=== PATIENT | female | born 1990 | race Caucasian/White ===

== ENCOUNTER 2020-01-28 14:07 | Outpatient (CLI) | payer MEDICARE, MEDICAID ==
[2020-01-28 17:55] LABS: BASOPHILS # (AUTO) 0.1 10^3/uL (0.0-0.1); BASOPHILS % (AUTO) 0.5 %; EOSINOPHILS % (AUTO) 0.3 %; HGB - HEMOGLOBIN 13.5 g/dL (12.0-16.0); LYMPHOCYTES % (AUTO) 10.1 %; MEAN CORPUSCULAR HEMOGLOBIN 33.9 pg (27.0-31.0); MEAN CORPUSCULAR HGB CONC 33.2 g/dL (32.0-36.0); MEAN CORPUSCULAR VOLUME 102.3 fL (81.0-99.0); MEAN PLATELET VOLUME 9.8 fL (7.9-10.8); MONOCYTES # (AUTO) 0.4 10^3/uL (0.0-1.0); MONOCYTES % (AUTO) 3.7 %; NEUTROPHILS # (AUTO) 8.6 10^3/uL (1.5-6.6); NEUTROPHILS % (AUTO) 84.6 %; PLT - PLATELET COUNT 281 10^3/uL (130-450); RED BLOOD COUNT 3.98 10^6/uL (4.20-5.40); RED CELL DISTRIBUTION WIDTH 13.2 % (12.0-15.0); WHITE BLOOD COUNT 10.1 x10^3/uL (4.8-10.8)
[2020-01-28 18:08] LABS: ALBUMIN 4.2 g/dL (3.2-5.5); ALBUMIN/GLOBULIN RATIO 1.4 (1.0-2.2); BILIRUBIN,TOTAL 0.6 mg/dL (0.2-1.0); CALCIUM 8.3 mg/dL (8.5-10.3); CREATININE 0.6 mg/dL (0.4-1.0); TOTAL PROTEIN 7.1 g/dL (6.7-8.2)
== END 2020-01-28 14:08 | disposition home or self-care (01) ==
LOC: LAB.S 14:07
PROVIDERS: ATTEND Nurse Practitioner Family
DX: L23.9 Allergic contact dermatitis, unspecified cause (principal); R21 Rash and other nonspecific skin eruption; F41.9 Anxiety disorder, unspecified; F32.9 Major depressive disorder, single episode, unspecified
CPT/HCPCS: 36415; 80053; 84443; 85025; 85651

== ENCOUNTER 2020-11-01 07:00 | Outpatient (CLI) | payer MEDICARE, MEDICAID ==
--- NOTE | 2020-11-01 13:33 | XRAY Report ---
PROCEDURE: Abdomen 1 View X-Ray INDICATIONS: ABDOMINAL PAIN TECHNIQUE: 1 view of the abdomen were acquired. COMPARISON: None. FINDINGS: Surgical changes and devices: None. Bowel: No pneumoperitoneum. The bowel gas pattern is normal. [id number] stool Soft tissues: No masses; visualized solid organ contours appear normal in size. No suspicious abdom inal calcifications. Bones: No suspicious bony abnormalities. IMPRESSION: No specific evidence of bowel obstruction although continued surveillance with abdominal radiographs could be performed if the patient's symptoms do not improve. Reviewed by: Taco Yanez MD on 11/01/2020 1:32 PM PST Approved by: Taco Yanez MD on 11/01/2020 1:32 PM PST Station ID: [id number]
== END 2020-11-01 23:59 | disposition home or self-care (01) ==
LOC: DI.N 07:00
PROVIDERS: ATTEND Physician Assistant Medical
DX: R10.9 Unspecified abdominal pain (principal)

== ENCOUNTER 2020-11-01 08:00 | Outpatient (CLI) | payer MEDICARE, MEDICAID ==
[2020-11-01 17:54] LABS: BASOPHILS # (AUTO) 0.1 10^3/uL (0.0-0.1); BASOPHILS % (AUTO) 0.7 %; EOSINOPHILS # (AUTO) 0.1 10^3/uL (0.0-0.7); EOSINOPHILS % (AUTO) 0.7 %; HGB - HEMOGLOBIN 12.7 g/dL (12.0-16.0); LYMPHOCYTES # (AUTO) 1.9 10^3/uL (1.5-3.5); LYMPHOCYTES % (AUTO) 19.7 %; MEAN CORPUSCULAR HEMOGLOBIN 32.9 pg (27.0-31.0); MEAN CORPUSCULAR HGB CONC 31.6 g/dL (32.0-36.0); MEAN CORPUSCULAR VOLUME 104.1 fL (81.0-99.0); MEAN PLATELET VOLUME 9.8 fL (7.9-10.8); MONOCYTES # (AUTO) 0.8 10^3/uL (0.0-1.0); MONOCYTES % (AUTO) 8.2 %; NEUTROPHILS # (AUTO) 6.7 10^3/uL (1.5-6.6); NEUTROPHILS % (AUTO) 70.3 %; PLT - PLATELET COUNT 307 10^3/uL (130-450); RED BLOOD COUNT 3.86 10^6/uL (4.20-5.40); WHITE BLOOD COUNT 9.5 x10^3/uL (4.8-10.8)
[2020-11-01 18:06] LABS: ALBUMIN 4.3 g/dL (3.2-5.5); ALBUMIN/GLOBULIN RATIO 1.2 (1.0-2.2); BILIRUBIN,TOTAL 0.7 mg/dL (0.2-1.0); CALCIUM 9.4 mg/dL (8.5-10.3); CREATININE 0.5 mg/dL (0.4-1.0); TOTAL PROTEIN 7.9 g/dL (6.7-8.2)
== END 2020-11-01 23:59 | disposition home or self-care (01) ==
LOC: LAB.N 08:00
PROVIDERS: ATTEND Physician Assistant Medical
DX: R10.9 Unspecified abdominal pain (principal)
CPT/HCPCS: 36415; 80053; 82962; 83690; 85025

== ENCOUNTER 2020-11-05 19:44 | Emergency (ER) | payer MEDICARE, MEDICAID ==
[2020-11-05 20:12] LABS: BILIRUBIN,URINE NEGATIVE (NEGATIVE); GLUCOSE, URINE (UA) NEGATIVE (NEGATIVE); KETONES,URINE (UA) 15 mg/dL (NEGATIVE); LEUKOCYTE ESTERASE, URINE NEGATIVE (NEGATIVE); NITRITE,URINE NEGATIVE (NEGATIVE); OCCULT BLOOD,URINE LARGE (NEGATIVE); PH,URINE 5.5 PH (5.0-7.5); PROTEIN,URINE NEGATIVE (NEGATIVE); UROBILINOGEN,URINE 0.2 (NORMAL) E.U./dL (NORMAL)
[2020-11-05 20:13] LABS: BASOPHILS # (AUTO) 0.1 10^3/uL (0.0-0.1); BASOPHILS % (AUTO) 0.6 %; EOSINOPHILS # (AUTO) 0.1 10^3/uL (0.0-0.7); EOSINOPHILS % (AUTO) 0.6 %; HGB - HEMOGLOBIN 12.8 g/dL (12.0-16.0); LYMPHOCYTES # (AUTO) 1.8 10^3/uL (1.5-3.5); LYMPHOCYTES % (AUTO) 14.4 %; MEAN CORPUSCULAR HEMOGLOBIN 33.7 pg (27.0-31.0); MEAN CORPUSCULAR HGB CONC 32.8 g/dL (32.0-36.0); MEAN CORPUSCULAR VOLUME 102.6 fL (81.0-99.0); MEAN PLATELET VOLUME 8.9 fL (7.9-10.8); MONOCYTES % (AUTO) 7.6 %; NEUTROPHILS # (AUTO) 9.7 10^3/uL (1.5-6.6); NEUTROPHILS % (AUTO) 76.5 %; PLT - PLATELET COUNT 399 10^3/uL (130-450); RED CELL DISTRIBUTION WIDTH 11.9 % (12.0-15.0); WHITE BLOOD COUNT 12.7 x10^3/uL (4.8-10.8)
[2020-11-05 20:16] LABS: CLARITY,URINE HAZY (CLEAR); HCG UR QUAL NEGATIVE
[2020-11-05 20:32] LABS: ALBUMIN 4.4 g/dL (3.2-5.5); ALBUMIN/GLOBULIN RATIO 1.1 (1.0-2.2); ALKALINE PHOSPHATASE 68 IU/L (42-121); ALT ALANINE AMINOTRANSFERASE 20 IU/L (10-60); AST ASPARTATE AMINOTRANSFERASE 21 IU/L (10-42); BILIRUBIN,TOTAL 0.8 mg/dL (0.2-1.0); BUN - BLOOD UREA NITROGEN < 5 mg/dL (6-20); CALCIUM 9.6 mg/dL (8.5-10.3); CARBON DIOXIDE - CO2 24 mmol/L (21-32); CHLORIDE 99 mmol/L (101-111); CREATININE 0.6 mg/dL (0.4-1.0); GLUCOSE 112 mg/dL (70-100); LIPASE 31 U/L (22-51); SODIUM 135 mmol/L (135-145); TOTAL PROTEIN 8.5 g/dL (6.7-8.2)
[2020-11-05 20:34] LABS: BACTERIA,URINE Moderate /HPF (None Seen); SQUAMOUS EPITHELIAL CELL,UR FEW Squamous (<= Few)
[2020-11-05] MEDS ORDERED: MINERAL OIL ENEMA 133 ML BOTTLE RC STA (20:47)
[2020-11-05] MEDS ORDERED: IOVERSOL 320 100 ML VIAL IVP ONE ×2 (21:46→22:13)
[2020-11-05] MEDS ORDERED: SODIUM CHLORIDE 0.9% 1,000 ML IV STA (22:32)
--- NOTE | 2020-11-05 22:50 | ED Physician Documentation ---
History of Present Illness - Stated complaint Stated Complaint: FEMALE - Chief complaint Chief Complaint: Abd Pain - History obtained from History obtained from: Patient - History of Present Illness Pain level max: 5 Pain level now: 4 - Additonal information Additional information: Patient states that she has had lower abdominal pain for the past 2 weeks. Nothing seems to make it better or worse. She states she has had troubles with constipation, swelling in her lower abdomen and difficulty urinating. No vaginal bleeding or discharge. No vomiting. No fevers. Has never had similar symptoms in the past. Denies any possibility of . 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 : None HEENT: None Psych: Depression, Anxiety Musculoskeletal: None Derm: None - Past Surgical History Past Surgical History: No - Present Medications Home Medications: Ambulatory Orders Medication Instructions Recorded Confirmed Escitalopram [Lexapro] 15 mg pe DAILY PM 11/05/20 11/05/20 Mirtazapine [Remeron] 15 mg PO DAILY PM 11/05/20 11/05/20 lamoTRIgine [Lamictal Odt] 50 mg PO DAILY 11/05/20 11/05/20 traZODone [Desyrel] 100 mg PO DAILY 11/05/20 11/05/20 - Allergies Allergies/Adverse Reactions: Allergies Allergy/AdvReac Type Severity Reaction Status Date / Time No Known Drug Allergies Allergy Verified 07/13/20 08:08 - Social History Does the pt smoke?: No Smoking Status: Never smoker Does the pt drink ETOH?: No Does the pt have substance abuse?: Yes Substance Use and Type: Marijuana - Immunizations Immunizations are current?: Yes PD ED PE NORMAL - Vitals Vital signs reviewed: Yes - General General: Alert and oriented X 3, No acute distress - HEENT HEENT: PERRL, Moist mucous membranes - Neck Neck: Supple, no meningeal sign - Cardiac Cardiac: RRR, Strong equal pulses - Respiratory Respiratory: No respiratory distress, Clear bilaterally - Abdomen Abdomen: Normal bowel sounds, Other (Distended abdomen, firm up to the level of the umbilicus. Tender palpation lower abdomen) - Derm Derm: Warm and dry - Extremities Extremities: No edema - Neuro Neuro: Alert and oriented X 3 - Psych Psych: Normal mood, Normal affect Results - Vitals Vitals: Vital Signs - 24 hr 11/05/20 11/05/20 19:52 22:04 Temperature 36.9 C 36.4 C L Heart Rate 105 H 90 Respiratory 18 16 Rate Blood Pressure 124/92 H 114/76 O2 Saturation 98 100 Oxygen O2 Source Room air - Labs Labs: Laboratory Tests 11/05/20 11/05/20 11/05/20 20:02 20:07 20:07 WBC 12.7 H RBC 3.80 L Hgb 12.8 Hct 39.0 MCV 102.6 H MCH 33.7 H MCHC 32.8 RDW 11.9 L Plt Count 399 MPV 8.9 Neut # (Auto) 9.7 H Lymph # (Auto) 1.8 [place] # (Auto) 1.0 Eos # (Auto) 0.1 Baso # (Auto) 0.1 Absolute Nucleated RBC 0.00 Nucleated RBC % 0.0 Sodium 135 Potassium 3.4 L Chloride 99 L Carbon Dioxide 24 Anion Gap 12.0 BUN < 5 L Creatinine 0.6 Estimated GFR (MDRD) 117 Glucose 112 H Calcium 9.6 Total Bilirubin 0.8 AST 21 ALT 20 Alkaline Phosphatase 68 Total Protein 8.5 H Albumin 4.4 Globulin 4.1 Albumin/Globulin Ratio 1.1 Lipase 31 Urine Color YELLOW Urine Clarity HAZY Urine pH 5.5 Ur Specific [place] <=1.005 Urine Protein NEGATIVE Urine Glucose (UA) NEGATIVE Urine Ketones 15 H Urine Occult Blood LARGE H Urine Nitrite NEGATIVE Urine Bilirubin NEGATIVE Urine Urobilinogen 0.2 (NORMAL) Ur Leukocyte Esterase NEGATIVE Urine RBC 6-10 H Urine WBC 0-3 Ur Squamous Epith Cells FEW Squamous Urine Bacteria Moderate H Ur Microscopic Review INDICATED Urine Culture Comments INDICATED Urine HCG, Qual NEGATIVE - Rads (name of study) CT abdomen pelvis Radiology: Prelim report reviewed, EMP read contemporaneously, See rad report Pelvic ultrasound Radiology: Prelim report reviewed, EMP read contemporaneously, See rad report PD MEDICAL DECISION MAKING - ED course Complexity details: reviewed results, re-evaluated patient, considered differential, d/w patient, d/w sales support consultant ED course: Patient is a 30-year-old female who presents to the emergency department with lower abdominal pain, constipation and difficulty urinating. Bedside ultrasound reveals an enlarged bladder. Conner catheter was placed and a 1.5 L of urine was drained. Patient felt better after this. CT scan was obtained and on my read of the CT scan appears to have a 10 x 10 x 15 cm large ovarian cyst. Gynecology was consulted, Dr. Prabhakar. She requested pelvic ultrasound. She will come and evaluate the patient. Patient was signed out to Dr. Barnett for final read of the abdomen pelvis, pelvic ultrasound results and gynecology consult results. Please see his note for further care. This document was made in part using voice recognition software. While efforts are made to proofread this document, sound alike and grammatical errors may occur. Departure - Departure Clinical Impression: Urinary retention Ovarian cyst Qualifiers: Laterality: unspecified laterality Qualified Code(s): N83.209 - Unspecified ovarian cyst, unspecified side Condition: Stable
[2020-11-05 23:48] LABS: C. PNEUMONIAE- RESP PCR PANEL NOT DETECTED
--- NOTE | 2020-11-06 00:30 | ED Physician Documentation ---
ED Addendum - Addendum Addendum: 11/06/20 00:27 Patient had her ultrasound and the preliminary worksheet is a likely ovarian cyst with some debris. Measures 15 cm. There is flow in both ovaries. No free fluid. Final report still pending. Dr. Prabhakar came to the ER to evaluate the imaging as well as the patient. Consideration on her perspective is ovarian serous versus endometrioma given that the patient does have a somewhat elevated CA-125. The patient does not have a bowel obstruction. She did have stool output impairment as well as bladder outlet obstruction. The bladder is decompressed with a Conner catheter. This would have the patient not in an emergent position but more urgent. Given the time of night, Dr. Prabhakar was considering placing the patient in observation or same day surgery but deferring surgery until the morning rather than calling in the OR crew off-hours for nonemergent case. However would need to be attended to on timely and urgent basis. Final diagnoses pelvic cyst, large #2 bladder outlet obstruction #3 rectal outlet obstruction #4 pelvic pain Disposition the patient will be placed in the hospital for same-day surgery to be performed tomorrow.
--- NOTE | 2020-11-06 00:57 | HISTORY & PHYSICAL EXAMINATION ---
HPI - Admitted From Admitted from: Other (ER consult with direct-admission surgery planned later today) - History Obtained From History obtained from: Patient Exam limitations: No limitations - History of Present Illness HPI Comment/Other: Asked by ER to consult on this patient with a 14cm ovarian cyst. About 2w ago started to have a gradual onset of a bloated and gassy feeling. No increased flatulence. Able to BM bid as per her usual. Bloating became worse with time and was associated with persistent urges to urinate and to defecate. Tried beano, ex lax, gas ex, and metamucil. Went to walk-in clinic 4d ago, received an xray, and was told taht she was constipated. On 11/05 the pain became severe. Mostly unable to urinate despite a strong urge to. Would void just a little bit and had a sensation of incomplete emptying. The voids that she were able to do were associated with severe stabbing pains. Catheterized for >1L of urine in the ER and immediately felt better. Currently in almost no discomfort. Was also given an enema in the ER, had scant volume of feces that came out, still feels an urge to defecate. Is passing flatus. No nausea or vomiting. Last spontaneous BM was at 13:00 yesterday and was normal in appearance and volume. ROS: no unexplained weight loss, fevers, night sweats, cough, hematuria, or melena. Occasional bright red bleeding in the stool that started after she felt herself tear. BMs are formed. PMH: --14cm ovarian cyst --Depression with prior suicide attempt, currently feeling well-managed with medications --Bulemia and anorexia x 10 years, better in the past 6 months. Was 104# at her worst in 2014 and is 137# now. Purging currently a few times per month. At her worst she was purging multiple times per day about 50% of days. --Alcoholism mostly sober for the past 2 months. Had a few days of relapse last week due to the pain and once in early September. Was drinking about 20 shots per day. Would drink until passing out, wake up, and repeat throughout the day. --Has been on disability since 2014 for her eating disorder and addiction. 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 No sexual partners since 2016. Not using contracep tion. LMP 11/05/20. Menses q4-6 weeks with a duration of 4 days. No mid-cycle bleeding. Has mild cramping on day #1 of menses. Allergies: NKDA Medications: --Lamotrigine 50mg po qhs --Escitalopram 20mg po qhs --Mirtazapine 15mg po qhs --Trazadone 50mg po qhs Family history: no anesthesia problems, breast cancer, ovarian cancer, or colon cancer Social history: is on disability. Lives alone with her cat. Vegan diet. Quit tobacco in 2016. Alcoholism sober since last week. Heavy THC use daily for the past 3 years but has quit now for 5 weeks. 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 : positive: None HEENT: positive: None Psych: positive: Depression, Anxiety, Eating disorder, Other (Alcoholism) Musculoskeletal: positive: None Derm: positive: None MRSA Hx?: No Social & Family Hx - Living Situation Living Arrangement: At home - Social History Does the pt smoke?: No Smoking Status: Former smoker (quit 2015) Does the pt drink ETOH?: No ETOH Use: Other (Quit 20 drinks per day in 10/2020) Does the pt have substance abuse?: Yes Substance Use and Type: Marijuana (quit 09/2020) Additional Social History: Alcoholism Meds/Allgy - Home Medications Home Medications: Ambulatory Orders Medication Instructions Recorded Confirmed Escitalopram [Lexapro] 15 mg pe DAILY PM 11/05/20 11/05/20 Mirtazapine [Remeron] 15 mg PO DAILY PM 11/05/20 11/05/20 lamoTRIgine [Lamictal Odt] 50 mg PO DAILY 11/05/20 11/05/20 traZODone [Desyrel] 100 mg PO DAILY 11/05/20 11/05/20 - Allergies Allergies/Adverse Reactions: Allergies Allergy/AdvReac Type Severity Reaction Status Date / Time No Known Drug Allergies Allergy Verified 07/13/20 08:08 Exam - Vital Signs Reviewed Vital Signs: Yes Vital Signs: Vital Signs x48h Temp Pulse Resp BP Pulse Ox 11/06/20 00:00 97.5 F L 92 16 106/75 100 11/05/20 22:56 100 18 115/89 H 100 11/05/20 22:04 97.5 F L 90 16 114/76 100 11/05/20 19:52 98.5 F 105 H 18 124/92 H 98 - Physical Exam General Appearance: positive: No acute distress Eyes Bilateral: positive: EOMI Neck: positive: Trachea midline Respiratory: positive: No respiratory distress, Breath sounds nml Cardiovascular: positive: Regular rate & rhythm, No murmur Abdomen: positive: Tenderness (mild right lower quadrant). negative: Guarding, Rebound Skin: positive: Color nml. negative: Cyanosis Extremities: positive: Non-tender, Nml appearance Neurologic/Psychiatric: positive: Oriented x3, CN's nml (2-12), Mood/affect nml Results - Lab Results Fish Bones: 11/05/20 20:07 11/05/20 20:07 Other Lab Results: Lab Results x24hrs 11/05/20 11/05/20 11/05/20 Range/Units 22:47 20:07 20:07 WBC (4.8-10.8) x10^3/uL RBC (4.20-5.40) 10^6/uL Hgb (12.0-16.0) g/dL Hct (37.0-47.0) % MCV (81.0-99.0) fL MCH (27.0-31.0) pg MCHC (32.0-36.0) g/dL RDW (12.0-15.0) % Plt Count (130-450) 10^3/uL MPV (7.9-10.8) fL Neut # (Auto) (1.5-6.6) 10^3/uL Lymph # (Auto) (1.5-3.5) 10^3/uL [place] # (Auto) (0.0-1.0) 10^3/uL Eos # (Auto) (0.0-0.7) 10^3/uL Baso # (Auto) (0.0-0.1) 10^3/uL Absolute Nucleated RBC x10^3/uL Nucleated RBC % /100WBC Sodium 135 (135-145) mmol/L Potassium 3.4 L (3.5-5.0) mmol/L Chloride 99 L (101-111) mmol/L Carbon Dioxide 24 (21-32) mmol/L Anion Gap 12.0 (6-13) BUN < 5 L (6-20) mg/dL Creatinine 0.6 (0.4-1.0) mg/dL Estimated GFR (MDRD) 117 (>89) Glucose 112 H (70-100) mg/dL Calcium 9.6 (8.5-10.3) mg/dL Total Bilirubin 0.8 (0.2-1.0) mg/dL AST 21 (10-42) IU/L ALT 20 (10-60) IU/L Alkaline Phosphatase 68 (42-121) IU/L Total Protein 8.5 H (6.7-8.2) g/dL Albumin 4.4 (3.2-5.5) g/dL Globulin 4.1 (2.1-4.2) g/dL Albumin/Globulin Ratio 1.1 (1.0-2.2) Lipase 31 (22-51) U/L [place] 125 Antigen 431.6 H (0.0-35.0) U/mL Urine Color Urine Clarity (CLEAR) Urine pH (5.0-7.5) PH Ur Specific [place] (1.002-1.030) Urine Protein (NEGATIVE) mg/dL Urine Glucose (UA) (NEGATIVE) mg/dL Urine Ketones (NEGATIVE) mg/dL Urine Occult Blood (NEGATIVE) Urine Nitrite (NEGATIVE) Urine Bilirubin (NEGATIVE) Urine Urobilinogen (NORMAL) E.U./dL Ur Leukocyte Esterase (NEGATIVE) Urine RBC (0-5) /HPF Urine WBC (0-5) /HPF Ur Squamous Epith Cells (<= Few) Urine Bacteria (None Seen) /HPF Ur Microscopic Review Urine Culture Comments Urine HCG, Qual Nasal Adenovirus (PCR) NOT DETECTED Nasal B. parapertussis DNA (PCR) NOT DETECTED Nasal Coronavir 229E PCR NOT DETECTED Nasal Coronavir HKU1 PCR NOT DETECTED Nasal Coronavir NL63 PCR NOT DETECTED Nasal Coronavir OC43 PCR NOT DETECTED Nasal Enterovir/Rhinovir PCR NOT DETECTED Nasal Influenza B PCR NOT DETECTED Nasal Influenza A PCR NOT DETECTED Nasal Parainfluen 1 PCR NOT DETECTED Nasal Parainfluen 2 PCR NOT DETECTED Nasal Parainfluen 3 PCR NOT DETECTED Nasal Parainfluen 4 PCR NOT DETECTED Nasal RSV (PCR) NOT DETECTED Nasal B.pertussis DNA PCR NOT DETECTED Nasal C.pneumoniae (PCR) NOT DETECTED [place] Human Metapneumo PCR NOT DETECTED Nasal M.pneumoniae (PCR) NOT DETECTED Nasal SARS-CoV-2 (PCR) NOT DETECTED 11/05/20 11/05/20 Range/Units 20:07 20:02 WBC 12.7 H (4.8-10.8) x10^3/uL RBC 3.80 L (4.20-5.40) 10^6/uL Hgb 12.8 (12.0-16.0) g/dL Hct 39.0 (37.0-47.0) % MCV 102.6 H (81.0-99.0) fL MCH 33.7 H (27.0-31.0) pg MCHC 32.8 (32.0-36.0) g/dL RDW 11.9 L (12.0-15.0) % Plt Count 399 (130-450) 10^3/uL MPV 8.9 (7.9-10.8) fL Neut # (Auto) 9.7 H (1.5-6.6) 10^3/uL Lymph # (Auto) 1.8 (1.5-3.5) 10^3/uL [place] # (Auto) 1.0 (0.0-1.0) 10^3/uL Eos # (Auto) 0.1 (0.0-0.7) 10^3/uL Baso # (Auto) 0.1 (0.0-0.1) 10^3/uL Absolute Nucleated RBC 0.00 x10^3/uL Nucleated RBC % 0.0 /100WBC Sodium (135-145) mmol/L Potassium (3.5-5.0) mmol/L Chloride (101-111) mmol/L Carbon Dioxide (21-32) mmol/L Anion Gap (6-13) BUN (6-20) mg/dL Creatinine (0.4-1.0) mg/dL Estimated GFR (MDRD) (>89) Glucose (70-100) mg/dL Calcium (8.5-10.3) mg/dL Total Bilirubin (0.2-1.0) mg/dL AST (10-42) IU/L ALT (10-60) IU/L Alkaline Phosphatase (42-121) IU/L Total Protein (6.7-8.2) g/dL Albumin (3.2-5.5) g/dL Globulin (2.1-4.2) g/dL Albumin/Globulin Ratio (1.0-2.2) Lipase (22-51) U/L [place] 125 Antigen (0.0-35.0) U/mL Urine Color YELLOW Urine Clarity HAZY (CLEAR) Urine pH 5.5 (5.0-7.5) PH Ur Specific [place] <=1.005 (1.002-1.030) Urine Protein NEGATIVE (NEGATIVE) mg/dL Urine Glucose (UA) NEGATIVE (NEGATIVE) mg/dL Urine Ketones 15 H (NEGATIVE) mg/dL Urine Occult Blood LARGE H (NEGATIVE) Urine Nitrite NEGATIVE (NEGATIVE) Urine Bilirubin NEGATIVE (NEGATIVE) Urine Urobilinogen 0.2 (NORMAL) (NORMAL) E.U./dL Ur Leukocyte Esterase NEGATIVE (NEGATIVE) Urine RBC 6-10 H (0-5) /HPF Urine WBC 0-3 (0-5) /HPF Ur Squamous Epith Cells FEW Squamous (<= Few) Urine Bacteria Moderate H (None Seen) /HPF Ur Microscopic Review INDICATED Urine Culture Comments INDICATED Urine HCG, Qual NEGATIVE Nasal Adenovirus (PCR) Nasal B. parapertussis DNA (PCR) Nasal Coronavir 229E PCR Nasal Coronavir HKU1 PCR Nasal Coronavir NL63 PCR Nasal Coronavir OC43 PCR Nasal Enterovir/Rhinovir PCR Nasal Influenza B PCR Nasal Influenza A PCR Nasal Parainfluen 1 PCR Nasal Parainfluen 2 PCR Nasal Parainfluen 3 PCR Nasal Parainfluen 4 PCR Nasal RSV (PCR) Nasal B.pertussis DNA PCR Nasal C.pneumoniae (PCR) [place] Human Metapneumo PCR Nasal M.pneumoniae (PCR) Nasal SARS-CoV-2 (PCR) - Diagnostic Imaging Results Diagnostic Imaging Results: positive: Prelim report reviewed, Read contemporaneously Diagnostic Imaging Results Comments: CT abdomen pelvis 11/05/20: 14.2cm pelvic cystic mass posterior to the uterus c/w ovarian cyst. No lymphadenopathy, ascites, or omental caking. Ultrasound pelvis 11/05/20: [id number] likely right ovarian cyst posterior to the uterus. Mostly with a homogeneous ground-glass appearance with a small complex area medially. Normal flow. Normal uterus and endometrium. Left ovary [id number] with a simple 2cm cyst. No free fluid. Impression/Plan - Problem List Problem List: 30yo with a ground-glass 14cm ovarian cyst causing bladder outlet obstruction and an ileus. Not . --Acute pain has resolved with cortez placement and >1L of retained urine drained. Continue cortez. --Ileus by CT scan, patient is passing flatus, is without nausea or vomiting, and had a normal BM at 13:00. Continue NPO for planned surgery. --Ovarian cyst is complex with a ground-glass appearance and a small degree of lateral heterogeneous appearance. No septation or solid components seen. The appearance is most consistent with an endometrioma. No ascites, omental caking, lymphadenopathy, constitutional symptoms, or family history of breast or ovarian cancer. CA125 is elevated at 431--which is non-specific but is not normal. Elevated CA125 could be due to her recovering alcoholism, possible endometriosis, etc. The patient will require surgical management. Will likely be appropriate for surgery here but I would recommend getting an oncology opinion tomorrow morning. With the size she may need an oophorectomy and not just a cystectomy. With the size she may require a laparotomy rather than laparoscopy. Dr. Hernandez will be assuming her care at 07:00 today. Patient was counseled that he will approach surgery in the manner he deems to be best and that currently I can't group counselor her about the exact type of surgery. She will go home to care for her cat, will remain NPO, cortez will be in situ. She will be called later today with the surgery location and arrival time. COVID screening was negative today. --Alcoholism in recent recovery. Has not drank in the past week so pt is at low risk for DTs. Consider avoiding tylenol products. Platelets and LFTs are norm al.
[2020-11-06 01:22] VITALS: BP 111/91
--- NOTE | 2020-11-06 08:24 | CT Report ---
PROCEDURE: Abdomen/Pelvis W INDICATIONS: abd pain, distention CONTRAST: IV CONTRAST: Optiray 320 ml: 100 PO CONTRAST: *NO PO CONTRAST TECHNIQUE: After the administration of IV contrast, 5 mm thick sections acquired from the diaphragms to the symp hysis. 5 mm thick coronal and sagittal reformats were acquired. For radiation dose reduction, the f ollowing was used: automated exposure control, adjustment of mA and/or kV according to patient size. COMPARISON: Pelvic ultrasound dated 11.05.20 FINDINGS: Image quality: Excellent. ABDOMEN: Lung bases: Lung bases are clear. Heart size is normal. Solid organs: Liver and spleen are normal in size and enhancement. Gallbladder is contracted Bilia ry system is non dilated. Pancreas enhances normally. No adrenal nodules. Kidneys demonstrate norm al size and enhancement, without hydronephrosis. Peritoneum and bowel: Bowel loops demonstrate normal wall thickness and caliber. No free fluid or a ir. Normal appendix. Nodes and vessels: No retroperitoneal or mesenteric adenopathy by size criteria. Aorta and inferior vena cava are normal in size. Miscellaneous: No ventral hernias. PELVIS: Genitourinary: A Conner catheter is present. Urinary bladder is decompressed. Within the central pelvi s, there is a thick walled cystic structure measuring roughly 12.4 cm which demonstrates mural nodula rity as well as a septation anteriorly. Miscellaneous: No inguinal hernias or adenopathy. Bones: No suspicious bony lesions. No vertebral body compression fractures. IMPRESSION: 1. Findings suggestive of an ovarian malignancy. Gynecological surgical consultation is recommended. 2. Normal appendix. 3. Concordant with preliminary interpretation. Reviewed by: Anshul Eid MD on 11/06/2020 8:23 AM PST Approved by: Anshul Eid MD on 11/06/2020 8:23 AM PST Station ID: [id number]
--- NOTE | 2020-11-06 08:42 | Ultrasound Report ---
PROCEDURE: Pelvic w/Transvag+Doppler Comp INDICATIONS: pelvic pain, ovarian cyst, large TECHNIQUE: Real-time scanning was performed of the pelvic organs, with image documentation. Additional endovagi nal scanning was necessary due to incomplete visualization of the adnexal and endometrial structures by transabdominal scanning. COMPARISON: CT of abdomen and pelvis from the same day. FINDINGS: Transabdominal scanning: Limited scanning through the kidneys shows no hydronephrosis. No pathologi c free abdominal or pelvic fluid. Endovaginal scanning: Uterus: Uterus is normal in size at 8 x 3.1 x 5 cm. The endometrium measures 10 mm in combined thic kness. No gross endometrial mass or fluid. Ovaries: Right ovary measures 15.3 x 9.2 x 9.3 cm in size. Left ovary measures 4 x 3.4 x 2.3 cm in s ize. 14.2 x 7.5 x 8.5 cm hypoechoic structure with slightly low level internal echoes is seen in righ t adnexa. No internal vascularity is seen. Small follicles are seen in left ovary measures up to 1.5 x 1.5 x 1.9 cm in size. Normal arteriovenous flow is seen in bilateral ovaries on color Doppler image s. Conner catheter is seen in decompressed urinary bladder. IMPRESSION: 1. Large cystic lesion with internal low-level echo in right adnexa likely represent complex right ov kt cyst. Cystic neoplasm cannot be excluded. 2. Normal-appearing left ovary. No evidence of ovarian torsion. 3. Normal-appearing uterus and endometrium. No discrepancies from preliminary reading. Reviewed by: Jarvis Avina MD on 11/06/2020 8:41 AM PST Approved by: Jarvis Avina MD on 11/06/2020 8:41 AM PST Station ID: [id number]
== END 2020-11-06 01:22 | disposition home or self-care (01) ==
LOC: ED 19:44
DX: N83.201 Unspecified ovarian cyst, right side (principal); R33.9 Retention of urine, unspecified; N32.0 Bladder-neck obstruction; K56.7 Ileus, unspecified; R10.2 Pelvic and perineal pain; Z20.828 Contact with and (suspected) exposure to other viral communicable diseases; R79.89 Other specified abnormal findings of blood chemistry; F10.20 Alcohol dependence, uncomplicated; Z87.891 Personal history of nicotine dependence
CPT/HCPCS: 36415; 51702; 74177; 76830; 76856; 80053; 81001; 81025; 83690; 85025; 86304; 87086; 87631; 93975; 99284; 99285; A9270; Q9967; 0202U; 81003

== ENCOUNTER 2020-11-07 09:21 | Emergency (ER) | payer MEDICARE, MEDICAID ==
[2020-11-07 09:58] LABS: BASOPHILS # (AUTO) 0.1 10^3/uL (0.0-0.1); BASOPHILS % (AUTO) 0.4 %; EOSINOPHILS # (AUTO) 0.2 10^3/uL (0.0-0.7); EOSINOPHILS % (AUTO) 1.5 %; HGB - HEMOGLOBIN 12.6 g/dL (12.0-16.0); LYMPHOCYTES # (AUTO) 0.9 10^3/uL (1.5-3.5); LYMPHOCYTES % (AUTO) 7.6 %; MEAN CORPUSCULAR HEMOGLOBIN 33.7 pg (27.0-31.0); MEAN CORPUSCULAR HGB CONC 33.2 g/dL (32.0-36.0); MEAN CORPUSCULAR VOLUME 101.6 fL (81.0-99.0); MEAN PLATELET VOLUME 8.9 fL (7.9-10.8); MONOCYTES # (AUTO) 0.7 10^3/uL (0.0-1.0); MONOCYTES % (AUTO) 6.4 %; NEUTROPHILS # (AUTO) 9.7 10^3/uL (1.5-6.6); NEUTROPHILS % (AUTO) 83.6 %; PLT - PLATELET COUNT 352 10^3/uL (130-450); RED BLOOD COUNT 3.74 10^6/uL (4.20-5.40); RED CELL DISTRIBUTION WIDTH 11.9 % (12.0-15.0); WHITE BLOOD COUNT 11.6 x10^3/uL (4.8-10.8)
[2020-11-07 10:01] LABS: GLUCOSE, URINE (UA) NEGATIVE (NEGATIVE); KETONES,URINE (UA) >=80 mg/dL (NEGATIVE); LEUKOCYTE ESTERASE, URINE TRACE (NEGATIVE); NITRITE,URINE NEGATIVE (NEGATIVE); OCCULT BLOOD,URINE TRACE-INTA (NEGATIVE); PROTEIN,URINE 30 mg/dL (NEGATIVE); UROBILINOGEN,URINE 0.2 (NORMAL) E.U./dL (NORMAL)
[2020-11-07 10:07] LABS: BILIRUBIN,URINE NEGATIVE (NEGATIVE); CLARITY,URINE CLEAR (CLEAR); HCG UR QUAL NEGATIVE; ICTOTEST,URINE NEGATIVE
[2020-11-07 10:19] LABS: ALBUMIN 3.9 g/dL (3.2-5.5); ALKALINE PHOSPHATASE 62 IU/L (42-121); ALT ALANINE AMINOTRANSFERASE 16 IU/L (10-60); AST ASPARTATE AMINOTRANSFERASE 16 IU/L (10-42); BILIRUBIN,TOTAL 0.6 mg/dL (0.2-1.0); BUN - BLOOD UREA NITROGEN < 5 mg/dL (6-20); CALCIUM 9.2 mg/dL (8.5-10.3); CARBON DIOXIDE - CO2 23 mmol/L (21-32); CHLORIDE 100 mmol/L (101-111); CREATININE 0.5 mg/dL (0.4-1.0); GLUCOSE 96 mg/dL (70-100); LIPASE 28 U/L (22-51); SODIUM 136 mmol/L (135-145)
[2020-11-07 10:21] LABS: BACTERIA,URINE Many /HPF (None Seen); EPITHELIAL CELLS,UR FEW Transitional /HPF (<= Few); MUCUS,URINE Marked Strands; RBC,URINE 0-5 /HPF (0-5); SQUAMOUS EPITHELIAL CELL,UR MOD Squamous (<= Few)
[2020-11-07] MEDS ORDERED: KETOROLAC 15 MG/ML VIAL IVP STA (10:33)
[2020-11-07] MEDS ORDERED: ONDANSETRON 4 MG/2 ML VIAL IVP STA (10:34)
--- NOTE | 2020-11-07 11:48 | Ultrasound Report ---
PROCEDURE: Pelvic Complete INDICATIONS: Right lower quadrant pain TECHNIQUE: Real-time transabdominal scanning was performed of the pelvic organs, with image documentation. COMPARISON: 11/05/2020 CT and ultrasound FINDINGS: Uterus: Uterus is normal in size at 3.4 x 5.5 x 8.4 cm. No uterine mass. Normal endometrial thicknes s measuring up to 5 mm in double layer thickness. Ovaries: Right ovarian cyst with internal debris measures approximately 15.0 x 11.6 x 9.7 cm. This h as increased in size since the prior study. Left ovary is unremarkable. Other: No free pelvic fluid. Mild right hydronephrosis. Both ureteral jets identified. Conner cathete r is in the urinary bladder. IMPRESSION: Very large right ovarian cyst measuring up to 15 cm, increased from 14.2 cm on the recent comparison study. Mild right hydronephrosis may be related to ureteral compression due to the cyst. Reviewed by: Pankaj Myles MD on 11/07/2020 10:46 AM [facility] Approved by: Pankaj Myles MD on 11/07/2020 10:46 AM [facility] Station ID: [id number]
--- NOTE | 2020-11-07 12:43 | ED Physician Documentation ---
PD HPI ABD PAIN - Stated complaint Stated Complaint: ABDOMINAL PX/FAMAL - Chief complaint Chief Complaint: Abd Pain - History obtained from History obtained from: Patient - Additional information Additional information: 30-year-old, history of right ovarian cyst that caused urinary obstruction requiring Conner placement presents with moderate severity sharp right lower quadrant and suprapubic pain associated with nausea and dizziness starting at 745 this morning.Denies fevers, hematuria, back pain. Review of Systems Ten Systems: 10 systems reviewed and negative Constitutional: denies: Fever, Chills GI: reports: Abdominal Pain, Nausea. denies: Vomiting : reports: Unable to Void. 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 : None HEENT: None Psych: Depression, Anxiety, Eating disorder, Other Musculoskeletal: None Derm: None - Past Surgical History Past Surgical History: No - Present Medications Home Medications: Ambulatory Orders Medication Instructions Recorded Confirmed Escitalopram [Lexapro] 10 mg pe DAILY PM 11/05/20 11/07/20 Mirtazapine [Remeron] 10 mg PO DAILY PM 11/05/20 11/07/20 lamoTRIgine [Lamictal Odt] 50 mg PO DAILY 11/05/20 11/07/20 traZODone [Desyrel] 50 mg PO DAILY 11/05/20 11/07/20 - Allergies Allergies/Adverse Reactions: Allergies Allergy/AdvReac Type Severity Reaction Status Date / Time No Known Drug Allergies Allergy Verified 11/07/20 09:25 - Social History Does the pt smoke?: No Smoking Status: Never smoker Does the pt drink ETOH?: No Does the pt have substance abuse?: Yes - Immunizations Immunizations are current?: Yes PD ED PE NORMAL - Vitals Vital signs reviewed: Yes - General General: Alert and oriented X 3 - HEENT HEENT: Atraumatic, PERRL, EOMI - Neck Neck: Supple, no meningeal sign - Cardiac Cardiac: RRR - Respiratory Respiratory: No respiratory distress, Clear bilaterally - Abdomen Abdomen: Soft, Non tender, Non distended, Other (discomfort to suprapubic and RLQ palpation) - Female Female : Deferred - Rectal Rectal: Deferred - Back Back: No CVA TTP - Derm Derm: Normal color - Extremities Extremities: No deformity - Neuro Neuro: Alert and oriented X 3 Eye Opening: Spontaneous - Psych Psych: Normal mood Results - Vitals Vitals: Vital Signs - 24 hr 11/07/20 11/07/20 11/07/20 09:25 11:30 11:32 Temperature 37.2 C Heart Rate 106 H 89 98 Respiratory 20 18 Rate Blood Pressure 114/88 H 106/79 106/79 O2 Saturation 98 99 100 Oxygen O2 Source Room air - Labs Labs: Laboratory Tests 11/07/20 11/07/20 11/07/20 09:44 09:50 09:50 WBC 11.6 H RBC 3.74 L Hgb 12.6 Hct 38.0 MCV 101.6 H MCH 33.7 H MCHC 33.2 RDW 11.9 L Plt Count 352 MPV 8.9 Neut # (Auto) 9.7 H Lymph # (Auto) 0.9 L [place] # (Auto) 0.7 Eos # (Auto) 0.2 Baso # (Auto) 0.1 Absolute Nucleated RBC 0.00 Nucleated RBC % 0.0 Sodium 136 Potassium 3.3 L Chloride 100 L Carbon Dioxide 23 Anion Gap 13.0 BUN < 5 L Creatinine 0.5 Estimated GFR (MDRD) 144 Glucose 96 Calcium 9.2 Total Bilirubin 0.6 AST 16 ALT 16 Alkaline Phosphatase 62 Total Protein 8.0 Albumin 3.9 Globulin 4.1 Albumin/Globulin Ratio 1.0 Lipase 28 Urine Color YELLOW Urine Clarity CLEAR Urine pH 6.0 Ur Specific [place] 1.025 Urine Protein 30 H Urine Glucose (UA) NEGATIVE Urine Ketones >=80 H Urine Occult Blood TRACE-INTA Urine Nitrite NEGATIVE Urine Bilirubin NEGATIVE Urine Urobilinogen 0.2 (NORMAL) Ur Leukocyte Esterase TRACE H Urine RBC 0-5 Urine WBC 4-5 Ur Epithelial Cells FEW Transitional Ur Squamous Epith Cells MOD Squamous H Urine Bacteria Many H Urine Mucus Marked Strands Ur Microscopic Review INDICATED Urine Culture Comments NOT INDICATED Urine HCG, Qual NEGATIVE PD MEDICAL DECISION MAKING - ED course Complexity details: reviewed results, re-evaluated patient, d/w patient ED course: 30-year-old woman with 15 cm right ovarian cyst Presents with pain upon waking this morning, sharp severe right lower quadrant associated with nausea and dizziness, constant.Her Conner has not been draining at all even though she is drinking appropriately. Pelvic ultrasound with good flow to bilateral ovaries but with evidence of retained urine in the bladder. When Conner was changed she had resolution of her pain. Discussed with patient need to follow-up with CLINICAL REVIEW SPECIALIST this week and she has an appointment on . Strict return precautions given. Departure - Departure Disposition: , Self Care Clinical Impression: Hydronephrosis, Urinary (tract) obstruction, Ovarian cyst Condition: Good Instructions: Abdominal Pain Comments: You have been seen in the emergency department for urinary tract obstruction. Your Conner was not draining properly and now that we have changed it Your pain has resolved. Follow-up With your CLINICAL REVIEW SPECIALIST on . Return to the ED for any new or worsening symptoms.
[2020-11-07 12:57] VITALS: BP 110/65
== END 2020-11-07 13:00 | disposition home or self-care (01) ==
LOC: ED 09:21
DX: N83.201 Unspecified ovarian cyst, right side (principal); N13.30 Unspecified hydronephrosis; N13.9 Obstructive and reflux uropathy, unspecified
CPT/HCPCS: 36415; 80053; 81001; 81003; 81025; 83690; 85025; 87086; 96374; 99285

== ENCOUNTER 2020-11-07 16:51 | Emergency (ER) | payer MEDICARE, MEDICAID ==
--- NOTE | 2020-11-07 17:35 | ED Physician Documentation ---
History of Present Illness - Stated complaint Stated Complaint: FEMALE /CATH ISSUES - Chief complaint Chief Complaint: General - History obtained from History obtained from: Patient - Additonal information Additional information: 30-year-old woman with right ovarian cyst with possible malignant features presents for a third time in the past couple days with urinary obstruction despite having a Cortez catheter in place. She was seen in the emergency department earlier today and had her Cortez changed with return of 200 cc of urine but now is obstructed again. She states she has suprapubic constant aching gradual onset moderate severity abdominal pain that is nonradiating without exacerbating/relieving features. Denies fevers or new symptoms. 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 : None HEENT: None Psych: Depression, Anxiety, Eating disorder, Other Musculoskeletal: None Derm: None - Past Surgical History Past Surgical History: No - Present Medications Home Medications: Ambulatory Orders Medication Instructions Recorded Confirmed Escitalopram [Lexapro] 10 mg pe DAILY PM 11/05/20 11/07/20 Mirtazapine [Remeron] 10 mg PO DAILY PM 11/05/20 11/07/20 lamoTRIgine [Lamictal Odt] 50 mg PO DAILY 11/05/20 11/07/20 traZODone [Desyrel] 50 mg PO DAILY 11/05/20 11/07/20 - Allergies Allergies/Adverse Reactions: Allergies Allergy/AdvReac Type Severity Reaction Status Date / Time No Known Drug Allergies Allergy Verified 11/07/20 17:02 - Social History Does the pt smoke?: No Smoking Status: Never smoker Does the pt drink ETOH?: No Does the pt have substance abuse?: Yes - Immunizations Immunizations are current?: Yes PD ED PE NORMAL - Vitals Vital signs reviewed: Yes - General General: Alert and oriented X 3 - HEENT HEENT: Atraumatic, PERRL, EOMI - Neck Neck: Supple, no meningeal sign - Cardiac Cardiac: RRR - Respiratory Respiratory: No respiratory distress, Clear bilaterally - Abdomen Abdomen: Non tender, Non distended, Other (Discomfort to suprapubic palpation) - Female Female : Supervisor [place] present (KEIRY Cameron), Other (Normal external female genitalia. Cortez in place. ) - Rectal Rectal: Deferred - Back Back: No CVA TTP - Derm Derm: Normal color - Extremities Extremities: No deformity - Neuro Neuro: Alert and oriented X 3 - Psych Psych: Normal mood, Normal affect Results - Vitals Vitals: Vital Signs - 24 hr 11/07/20 11/07/20 17:03 18:31 Temperature 37.3 C Heart Rate 112 H 95 Respiratory 18 18 Rate Blood Pressure 103/75 116/86 H O2 Saturation 97 99 Oxygen O2 Source Room air PD MEDICAL DECISION MAKING - ED course ED course: 5;30pm - d/w Dr. Maurer re: patient persistent urinary obstruction. recommend teaching patient to flush cortez and if still obstructed consider transfer for urologic obstruction. 6PM - attempted to troubleshoot cortez with KEIRY cameron without success. will place new cortez. call placed to [facility] (given that patient has senior biostatistician onc appt with Dr. Marc on ). 6:45 pm - d/w [facility] senior biostatistician oncologist Dr. Carolina Vargas who will accept the patient with urology consulting in. patient with improvement in pain s/p morphine. 80cc draining in the bag. Departure - Departure Disposition: 02 Transfer Acute Care Hosp Clinical Impression: Urinary obstruction, Ovarian mass, right, Abdominal pain Condition: Stable
[2020-11-07] MEDS ORDERED: MORPHINE 10 MG/ML VIAL IVP STA (18:17)
[2020-11-07 18:32] VITALS: BP 116/86
[2020-11-07 20:03] LABS: C. PNEUMONIAE- RESP PCR PANEL NOT DETECTED
[2020-11-07] MEDS ORDERED: MORPHINE 2 MG/ML CARPUJECT IVP STA (20:42)
== END 2020-11-07 20:54 | disposition short-term general hospital (02) ==
LOC: ED 16:51
DX: T83.091A Other mechanical complication of indwelling urethral catheter, initial encounter (principal); Y84.6 Urinary catheterization as the cause of abnormal reaction of the patient, or of later complication, without mention of misadventure at the time of the procedure; R19.03 Right lower quadrant abdominal swelling, mass and lump; R10.2 Pelvic and perineal pain; Z20.828 Contact with and (suspected) exposure to other viral communicable diseases
CPT/HCPCS: 0202U; 36415; 51702; 80053; 81001; 81003; 81025; 83690; 85025; 87086; 96374; 99285

== ENCOUNTER 2020-11-07 20:51 | Outpatient (CLI) | payer MEDICARE, MEDICAID | END 2020-11-07 20:52 | disposition short-term general hospital (02) | LOC: EMS 20:51 | PROVIDERS: ATTEND Surgery | DX: N13.9 Obstructive and reflux uropathy, unspecified (principal); N83.209 Unspecified ovarian cyst, unspecified side | CPT/HCPCS: A0425; A0428 ==

== ENCOUNTER 2020-11-30 09:51 | Outpatient (CLI) | payer MEDICARE, MEDICAID ==
[2020-11-30 15:58] LABS: PT - PROTHROMBIN TIME 10.9 secs (9.9-12.6)
[2020-11-30 16:00] LABS: ALBUMIN 3.9 g/dL (3.2-5.5); ALBUMIN/GLOBULIN RATIO 1.3 (1.0-2.2); BILIRUBIN,TOTAL 0.3 mg/dL (0.2-1.0); CALCIUM 8.9 mg/dL (8.5-10.3); CREATININE 0.4 mg/dL (0.4-1.0)
== END 2020-11-30 09:52 | disposition home or self-care (01) ==
LOC: LAB.S 09:51
PROVIDERS: ATTEND Obstetrics & Gynecology
DX: F10.120 Alcohol abuse with intoxication, uncomplicated (principal)
CPT/HCPCS: 36415; 80053; 82306; 82607; 84207; 84425; 85610; 85730

== ENCOUNTER 2021-02-01 00:36 | Emergency (ER) | payer MEDICARE, MEDICAID ==
[2021-02-01] MEDS ORDERED: DEXAMETHASONE 10 MG/ML VIAL IVP STA (01:16)
[2021-02-01] MEDS ORDERED: FOLIC ACID INJ 1 MG, THIAMINE INJ 100 MG, MAGNESIUM SULFATE 2 GM, MULTIVITAMIN 10 ML in... IV STA ×5 (01:16)
[2021-02-01] MEDS ORDERED: ONDANSETRON 4 MG/2 ML VIAL IVP STA (01:17)
[2021-02-01 01:37] LABS: BASOPHILS # (AUTO) 0.1 10^3/uL (0.0-0.1); BASOPHILS % (AUTO) 1.1 %; EOSINOPHILS # (AUTO) 0.1 10^3/uL (0.0-0.7); EOSINOPHILS % (AUTO) 1.1 %; HCT - HEMATOCRIT 36.7 % (37.0-47.0); HGB - HEMOGLOBIN 11.8 g/dL (12.0-16.0); LYMPHOCYTES # (AUTO) 1.2 10^3/uL (1.5-3.5); LYMPHOCYTES % (AUTO) 21.8 %; MEAN CORPUSCULAR HEMOGLOBIN 32.6 pg (27.0-31.0); MEAN CORPUSCULAR HGB CONC 32.2 g/dL (32.0-36.0); MEAN CORPUSCULAR VOLUME 101.4 fL (81.0-99.0); MEAN PLATELET VOLUME 9.3 fL (7.9-10.8); MONOCYTES # (AUTO) 0.3 10^3/uL (0.0-1.0); MONOCYTES % (AUTO) 5.9 %; NEUTROPHILS # (AUTO) 3.9 10^3/uL (1.5-6.6); NEUTROPHILS % (AUTO) 69.7 %; PLT - PLATELET COUNT 270 10^3/uL (130-450); RED BLOOD COUNT 3.62 10^6/uL (4.20-5.40); RED CELL DISTRIBUTION WIDTH 13.9 % (12.0-15.0); WHITE BLOOD COUNT 5.6 x10^3/uL (4.8-10.8)
--- NOTE | 2021-02-01 01:44 | ED Physician Documentation ---
PD HPI NVD - Stated complaint Stated Complaint: VOMITING - Chief complaint Chief Complaint: Abd Pain - History obtained from History obtained from: Patient - History of Present Illness Timing - onset: Enter time (0), Today Timing - duration: Hours Timing - details: Gradual onset, Still present Associated symptoms: Abdominal pain, Loss of appetite Contributing factors: Alcohol use Improved by: Vomiting Worsened by: Eating Similar symptoms before: Diagnosis (alcoholic gastritis) Recently seen: Surgery (had ovary out in October. A mass was causing urinary outlet obstruction. [id number]) - Additonal information Additional information: 30-year-old female with a prior history of alcoholic gastritis has developed nausea and vomiting she believes is related to drinking. She states that she believes this started the day before when she did overdo with drinking and this morning she had some additional alcohol which seemed to make things worse. This evening by 5 PM she was unable to hold down any fluids and has come to the emergency department for hydration. She has had luck previously with Zofran for control of nausea. 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 : None HEENT: None Psych: Depression, Anxiety, Eating disorder, Other Musculoskeletal: None Derm: None - Past Surgical History Past Surgical History: No - Present Medications Home Medications: Ambulatory Orders Medication Instructions Recorded Confirmed Escitalopram [Lexapro] 10 mg pe DAILY PM 11/05/20 11/07/20 Mirtazapine [Remeron] 10 mg PO DAILY PM 11/05/20 11/07/20 lamoTRIgine [Lamictal Odt] 50 mg PO DAILY 11/05/20 11/07/20 traZODone [Desyrel] 50 mg PO DAILY 11/05/20 11/07/20 Ondansetron Odt [Zofran] 4 mg TL Q6H PRN #10 tablet 02/01/21 - Allergies Allergies/Adverse Reactions: Allergies Allergy/AdvReac Type Severity Reaction Status Date / Time No Known Drug Allergies Allergy Verified 11/07/20 17:02 - Social History Does the pt smoke?: No Smoking Status: Never smoker Does the pt drink ETOH?: No Does the pt have substance abuse?: Yes - Immunizations Immunizations are current?: Yes PD ED PE NORMAL - Vitals Vital signs reviewed: Yes (normal ) - General General: Alert and oriented X 3, No acute distress, Well developed/nourished - HEENT HEENT: Atraumatic, PERRL, EOMI - Neck Neck: Supple, no meningeal sign, No bony TTP - Cardiac Cardiac: No murmur, Other (tachy to 100) - Respiratory Respiratory: No respiratory distress, Clear bilaterally - Abdomen Abdomen: Normal bowel sounds, Soft, Non distended, No organomegaly, Other (mild epigastric tenderness) - Back Back: No CVA TTP, No spinal TTP - Derm Derm: Normal color, Warm and dry, No rash - Extremities Extremities: No deformity, No edema - Neuro Neuro: Alert and oriented X 3, beauty culturist apprentice 2-12 intact, No motor deficit, No sensory deficit, Normal speech Eye Opening: Spontaneous Motor: Obeys Commands Verbal: Oriented GCS Score: 15 - Psych Psych: Normal mood, Normal affect Results - Vitals Vitals: Vital Signs - 24 hr 02/01/21 01:01 Temperature 36.5 C Heart Rate 87 Respiratory 19 Rate Blood Pressure 120/78 O2 Saturation 99 Oxygen O2 Source Room air - Labs Labs: Laboratory Tests 02/01/21 02/01/21 01:33 01:33 WBC 5.6 RBC 3.62 L Hgb 11.8 L Hct 36.7 L MCV 101.4 H MCH 32.6 H MCHC 32.2 RDW 13.9 Plt Count 270 MPV 9.3 Neut # (Auto) 3.9 Lymph # (Auto) 1.2 L [place] # (Auto) 0.3 Eos # (Auto) 0.1 Baso # (Auto) 0.1 Absolute Nucleated RBC 0.00 Nucleated RBC % 0.0 Sodium 137 Potassium 3.7 Chloride 98 L Carbon Dioxide 25 Anion Gap 14.0 H BUN 11 Creatinine 0.6 Estimated GFR (MDRD) 117 Glucose 108 H Calcium 8.4 L Total Bilirubin 0.5 AST 21 ALT 14 Alkaline Phosphatase 50 Total Protein 6.8 Albumin 4.0 Globulin 2.8 Albumin/Globulin Ratio 1.4 Lipase 32 Ethyl Alcohol < 5.0 Procedures - IVC sono (time) 0115 Bedside IVC sono: IVC measures (cm) (0.89), Dehydration (est 2 liter deficit) PD MEDICAL DECISION MAKING - ED course Complexity details: reviewed old records, reviewed results, re-evaluated patient, considered differential, d/w patient ED course: 30-year-old female with a history of binge drinking and alcohol excess has had a prior history of alcoholic gastritis and she states that today this is a danelle lar episode. She has not been able to hold anything down this evening and she arrives to the emergency department dehydrated. She is administered a banana bag and Zofran with improvement and we will send her home with some Zofran for use at home. Departure - Departure Disposition: 01 Home, Self Care Clinical Impression: Alcohol abuse, Dehydration Gastritis Qualifiers: Gastritis type: alcoholic Chronicity: acute Gastritis bleeding: without bleeding Qualified Code(s): K29.20 - Alcoholic gastritis without bleeding Instructions: ED Dehydration, ED Gastritis, ED PUD Vs Gastritis Follow-Up: Gloria Brown ARNP [Primary Care Provider] - Prescriptions: Ondansetron Odt [Zofran] 4 mg TL Q6H PRN #10 tablet PRN Reason: Nausea / Vomiting Forms: Activity restrictions
[2021-02-01 01:51] LABS: ALBUMIN/GLOBULIN RATIO 1.4 (1.0-2.2); ALKALINE PHOSPHATASE 50 IU/L (42-121); ALT ALANINE AMINOTRANSFERASE 14 IU/L (10-60); AST ASPARTATE AMINOTRANSFERASE 21 IU/L (10-42); BILIRUBIN,TOTAL 0.5 mg/dL (0.2-1.0); BUN - BLOOD UREA NITROGEN 11 mg/dL (6-20); CALCIUM 8.4 mg/dL (8.5-10.3); CARBON DIOXIDE - CO2 25 mmol/L (21-32); CHLORIDE 98 mmol/L (101-111); CREATININE 0.6 mg/dL (0.4-1.0); ETOH - ETHANOL < 5.0 mg/dL; GFR - MDRD 117 (>89); GLUCOSE 108 mg/dL (70-100); LIPASE 32 U/L (22-51); POTASSIUM 3.7 mmol/L (3.5-5.0); SODIUM 137 mmol/L (135-145); TOTAL PROTEIN 6.8 g/dL (6.7-8.2)
[2021-02-01] MEDS ORDERED: MAGNESIUM SULFATE 1 GM/2 ML VIAL ONE (02:08)
[2021-02-01] MEDS ORDERED: FOLIC ACID 5 MG/1 ML 10ML MDV ONE (02:08)
[2021-02-01] MEDS ORDERED: THIAMINE 100 MG/1 ML 2 ML MDV ONE (02:08)
[2021-02-01 02:52] LABS: BILIRUBIN,URINE NEGATIVE (NEGATIVE); GLUCOSE, URINE (UA) NEGATIVE (NEGATIVE); KETONES,URINE (UA) TRACE mg/dL (NEGATIVE); LEUKOCYTE ESTERASE, URINE NEGATIVE (NEGATIVE); NITRITE,URINE NEGATIVE (NEGATIVE); OCCULT BLOOD,URINE NEGATIVE (NEGATIVE); PROTEIN,URINE NEGATIVE (NEGATIVE); UROBILINOGEN,URINE 0.2 (NORMAL) E.U./dL (NORMAL)
[2021-02-01 02:54] LABS: CLARITY,URINE CLEAR (CLEAR)
[2021-02-01 02:55] LABS: HCG UR QUAL NEGATIVE
[2021-02-01 03:21] VITALS: BP 123/82
== END 2021-02-01 03:21 | disposition home or self-care (01) ==
LOC: ED 00:36
DX: E86.0 Dehydration (principal); F10.10 Alcohol abuse, uncomplicated; K29.20 Alcoholic gastritis without bleeding
CPT/HCPCS: 36415; 80053; 81003; 81025; 83690; 85025; 96365; 96375; 99283; G0480; J3411; 80320; 81001; 87086

== ENCOUNTER 2021-02-27 21:20 | Emergency (ER) | payer MEDICARE, MEDICAID ==
[2021-02-27] MEDS ORDERED: SODIUM CHLORIDE 0.9% 1,000 ML IV STA (21:53)
[2021-02-27] MEDS ORDERED: FAMOTIDINE 20 MG/2 ML VIAL IVP STA (21:53)
[2021-02-27] MEDS ORDERED: ONDANSETRON 4 MG/2 ML VIAL IVP STA (21:53)
[2021-02-27 22:00] LABS: BASOPHILS # (AUTO) 0.1 10^3/uL (0.0-0.1); BASOPHILS % (AUTO) 0.6 %; EOSINOPHILS # (AUTO) 0.2 10^3/uL (0.0-0.7); EOSINOPHILS % (AUTO) 1.7 %; HCT - HEMATOCRIT 36.6 % (37.0-47.0); HGB - HEMOGLOBIN 11.8 g/dL (12.0-16.0); LYMPHOCYTES # (AUTO) 1.4 10^3/uL (1.5-3.5); LYMPHOCYTES % (AUTO) 15.8 %; MEAN CORPUSCULAR HEMOGLOBIN 32.9 pg (27.0-31.0); MEAN CORPUSCULAR HGB CONC 32.2 g/dL (32.0-36.0); MEAN CORPUSCULAR VOLUME 101.9 fL (81.0-99.0); MEAN PLATELET VOLUME 9.9 fL (7.9-10.8); MONOCYTES # (AUTO) 0.6 10^3/uL (0.0-1.0); MONOCYTES % (AUTO) 6.5 %; NEUTROPHILS # (AUTO) 6.7 10^3/uL (1.5-6.6); NEUTROPHILS % (AUTO) 74.9 %; PLT - PLATELET COUNT 236 10^3/uL (130-450); RED BLOOD COUNT 3.59 10^6/uL (4.20-5.40); RED CELL DISTRIBUTION WIDTH 13.7 % (12.0-15.0); WHITE BLOOD COUNT 8.9 x10^3/uL (4.8-10.8)
[2021-02-27 22:10] LABS: ALBUMIN 4.1 g/dL (3.2-5.5); ALBUMIN/GLOBULIN RATIO 1.4 (1.0-2.2); BILIRUBIN,TOTAL 0.5 mg/dL (0.2-1.0); CALCIUM 8.7 mg/dL (8.5-10.3); CREATININE 0.5 mg/dL (0.4-1.0); POTASSIUM 3.9 mmol/L (3.5-5.0)
--- NOTE | 2021-02-27 23:15 | ED Physician Documentation ---
History of Present Illness - Stated complaint Stated Complaint: VOMITING - Chief complaint Chief Complaint: Abd Pain - History obtained from History obtained from: Patient - Additonal information Additional information: 30-year-old woman with history of alcoholic gastritis presents with nonbloody nonbilious nausea and vomiting since 11 AM this morning. She states that she often gets stomach irritation related to drinking alcohol and she was drinking alcohol this morning that she believes per the son. Denies fevers, diarrhea, chest pain shortness of breath. She does have some mild epigastric discomfort that is constant, worse with vomiting, nonradiating, burning quality. Review of Systems Ten Systems: 10 systems reviewed and negative Constitutional: denies: Fever Cardiac: denies: Chest pain / pressure GI: reports: Abdominal Pain, Nausea, Vomiting. 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 : None HEENT: None Psych: Depression, Anxiety, Eating disorder Musculoskeletal: None Derm: None - Past Surgical History Past Surgical History: No - Present Medications Home Medications: Ambulatory Orders Medication Instructions Recorded Confirmed Escitalopram [Lexapro] 10 mg pe DAILY PM 11/05/20 11/07/20 Mirtazapine [Remeron] 10 mg PO DAILY PM 11/05/20 11/07/20 lamoTRIgine [Lamictal Odt] 50 mg PO DAILY 11/05/20 11/07/20 traZODone [Desyrel] 50 mg PO DAILY 11/05/20 11/07/20 Ondansetron Odt [Zofran] 4 mg TL Q6H PRN #10 tablet 02/01/21 Ondansetron Odt [Zofran Odt] 4 mg TL Q6H PRN #10 tablet 02/27/21 - Allergies Allergies/Adverse Reactions: Allergies Allergy/AdvReac Type Severity Reaction Status Date / Time No Known Drug Allergies Allergy Verified 11/07/20 17:02 - Social History Does the pt smoke?: No Smoking Status: Never smoker Does the pt drink ETOH?: No ETOH Use: Wine Does the pt have substance abuse?: Yes - Immunizations Immunizations are current?: Yes - POLST Patient has POLST: No PD ED PE NORMAL - Vitals Vital signs reviewed: Yes - General General: Alert and oriented X 3, No acute distress, Well developed/nourished - HEENT HEENT: Atraumatic, PERRL, EOMI - Neck Neck: Supple, no meningeal sign - Cardiac Cardiac: RRR - Respiratory Respiratory: No respiratory distress, Clear bilaterally - Abdomen Abdomen: Non tender, Non distended, Other (Discomfort to epigastric palpation) - Female Female : Deferred - Rectal Rectal: Deferred - Back Back: No CVA TTP - Derm Derm: Normal color - Extremities Extremities: No deformity - Neuro Neuro: Alert and oriented X 3 - Psych Psych: Normal mood, Normal affect Results - Vitals Vitals: Vital Signs - 24 hr 02/27/21 02/27/21 21:21 23:33 Temperature 36.4 C L Heart Rate 87 79 Respiratory 20 14 Rate Blood Pressure 127/80 119/75 O2 Saturation 100 100 Oxygen O2 Source Room air - Labs Labs: Laboratory Tests 02/27/21 02/27/21 21:51 21:51 WBC 8.9 RBC 3.59 L Hgb 11.8 L Hct 36.6 L MCV 101.9 H MCH 32.9 H MCHC 32.2 RDW 13.7 Plt Count 236 MPV 9.9 Neut # (Auto) 6.7 H Lymph # (Auto) 1.4 L [place] # (Auto) 0.6 Eos # (Auto) 0.2 Baso # (Auto) 0.1 Absolute Nucleated RBC 0.00 Nucleated RBC % 0.0 Sodium 137 Potassium 3.9 Chloride 101 Carbon Dioxide 24 Anion Gap 12.0 BUN 8 Creatinine 0.5 Estimated GFR (MDRD) 144 Glucose 93 Calcium 8.7 Total Bilirubin 0.5 AST 23 ALT 10 Alkaline Phosphatase 57 Total Protein 7.0 Albumin 4.1 Globulin 2.9 Albumin/Globulin Ratio 1.4 Lipase 47 PD MEDICAL DECISION MAKING - ED course Complexity details: re-evaluated patient, d/w patient ED course: 30-year-old woman presents with alcoholic gastritis flare. Her symptoms resolved with IV Zofran and fluids. She is requesting to go home at this time. Strict return precautions given. She will follow up with her primary doctor for referral to gastroenterology and detox. Departure - Departure Disposition: , Self Care Clinical Impression: Nausea and vomiting, Alcohol abuse Condition: Good Instructions: Diet Clear Liquid Dc Prescriptions: Ondansetron Odt [Zofran Odt] 4 mg TL Q6H PRN #10 tablet PRN Reason: Nausea / Vomiting Comments: You were seen for vomiting likely caused by alcoholic gastritis. Please follow- up with your primary doctor for referral to detox and to gastroenterology as needed. Return to the emergency department if you develop any new or worsening symptoms or have other concerns. Discharge Date/Time: 02/27/21 23:34
[2021-02-27 23:34] VITALS: BP 119/75
--- OUTSIDE RECORDS SUMMARY | 2021-02-28 03:27 | EXTERNAL MEDICAL SUMMARY RPT | Continuity of Care Document ---
:1990 Demographics Phone Unavailable Preferred Language Unknown Marital Status Unknown Scientology Affiliation Unknown Race Unknown Ethnic Group Unknown Author Organization [facility] Address [address] [place] [address] Phone Social History date description facility [phone]
== END 2021-02-27 23:34 | disposition home or self-care (01) ==
LOC: ED 21:20
DX: K29.20 Alcoholic gastritis without bleeding (principal); F10.10 Alcohol abuse, uncomplicated
CPT/HCPCS: 36415; 80053; 83690; 85025; 96374; 99284

== ENCOUNTER 2021-03-28 08:00 | Outpatient (CLI) | payer MEDICARE, MEDICAID ==
[2021-03-28 15:39] LABS: ALBUMIN 4.5 g/dL (3.2-5.5); ALBUMIN/GLOBULIN RATIO 1.5 (1.0-2.2); ALKALINE PHOSPHATASE 48 IU/L (42-121); ALT ALANINE AMINOTRANSFERASE 17 IU/L (10-60); AST ASPARTATE AMINOTRANSFERASE 25 IU/L (10-42); BUN - BLOOD UREA NITROGEN < 5 mg/dL (6-20); CALCIUM 9.1 mg/dL (8.5-10.3); CARBON DIOXIDE - CO2 24 mmol/L (21-32); CHLORIDE 100 mmol/L (101-111); CREATININE 0.6 mg/dL (0.4-1.0); GFR - MDRD 117 (>89); GLUCOSE 116 mg/dL (70-100); POTASSIUM 3.4 mmol/L (3.5-5.0); SODIUM 136 mmol/L (135-145); TOTAL PROTEIN 7.6 g/dL (6.7-8.2)
[2021-03-28 18:30] LABS: BASOPHILS # (AUTO) 0.1 10^3/uL (0.0-0.1); BASOPHILS % (AUTO) 1.3 %; EOSINOPHILS # (AUTO) 0.2 10^3/uL (0.0-0.7); EOSINOPHILS % (AUTO) 4.4 %; HCT - HEMATOCRIT 40.6 % (37.0-47.0); HGB - HEMOGLOBIN 13.3 g/dL (12.0-16.0); LYMPHOCYTES # (AUTO) 0.9 10^3/uL (1.5-3.5); LYMPHOCYTES % (AUTO) 23.2 %; MEAN CORPUSCULAR HEMOGLOBIN 33.6 pg (27.0-31.0); MEAN CORPUSCULAR HGB CONC 32.8 g/dL (32.0-36.0); MEAN CORPUSCULAR VOLUME 102.5 fL (81.0-99.0); MEAN PLATELET VOLUME 9.6 fL (7.9-10.8); MONOCYTES # (AUTO) 0.4 10^3/uL (0.0-1.0); MONOCYTES % (AUTO) 9.1 %; NEUTROPHILS # (AUTO) 2.4 10^3/uL (1.5-6.6); NEUTROPHILS % (AUTO) 61.7 %; PLT - PLATELET COUNT 297 10^3/uL (130-450); RED BLOOD COUNT 3.96 10^6/uL (4.20-5.40); RED CELL DISTRIBUTION WIDTH 13.5 % (12.0-15.0); WHITE BLOOD COUNT 3.8 x10^3/uL (4.8-10.8)
== END 2021-03-28 23:59 | disposition home or self-care (01) ==
LOC: LAB.S 08:00
PROVIDERS: ATTEND Physician Assistant Medical
DX: R11.10 Vomiting, unspecified (principal)
CPT/HCPCS: 36415; 80053; 82607; 82746; 85025

== ENCOUNTER 2021-09-07 12:36 | Outpatient (CLI) | payer MEDICARE, MEDICAID ==
--- NOTE | 2021-09-07 13:22 | XRAY Report ---
PROCEDURE: Hip w/Pelvis 2-3V RT INDICATIONS: HIP PAIN, RIGHT TECHNIQUE: AP pelvis with lateral view(s) of the right hip(s). COMPARISON: None. FINDINGS: Bones: No fractures or dislocations. Pelvic ring appears intact. No evidence of avascular necrosis of femoral head. No suspicious bony lesions. Soft tissues: The visualized bowel gas pattern is normal. No suspicious soft tissue calcifications. IMPRESSION: Unremarkable radiographic examination of pelvis and right hip. Reviewed by: Jarvis Avina MD on 09/07/2021 1:21 PM PDT Approved by: Jarvis Avina MD on 09/07/2021 1:21 PM PDT Station ID: [id number]
== END 2021-09-07 12:37 | disposition home or self-care (01) ==
LOC: DI.S 12:36
PROVIDERS: ATTEND Physician Assistant Medical
DX: M25.551 Pain in right hip (principal)

== ENCOUNTER 2022-04-14 07:38 | Outpatient (CLI) | payer MEDICARE, MEDICAID | END 2022-04-14 07:39 | disposition critical access hospital (66) | LOC: EMS 07:38 | DX: L29.9 Pruritus, unspecified (principal); R49.0 Dysphonia; R11.2 Nausea with vomiting, unspecified; R60.0 Localized edema; R07.89 Other chest pain; N93.9 Abnormal uterine and vaginal bleeding, unspecified; R39.89 Other symptoms and signs involving the genitourinary system | CPT/HCPCS: A0425; A0427 ==

== ENCOUNTER 2022-04-14 08:16 | Emergency (ER) | payer MEDICARE, MEDICAID ==
[2022-04-14] MEDS ORDERED: DEXAMETHASONE 10 MG/ML VIAL IVP STA (08:29)
[2022-04-14 08:56] LABS: BASOPHILS # (AUTO) 0.1 10^3/uL (0.0-0.1); BASOPHILS % (AUTO) 0.9 %; EOSINOPHILS % (AUTO) 0.4 %; HCT - HEMATOCRIT 34.1 % (37.0-47.0); LYMPHOCYTES % (AUTO) 18.2 %; MEAN CORPUSCULAR HGB CONC 32.3 g/dL (32.0-36.0); MEAN CORPUSCULAR VOLUME 102.4 fL (81.0-99.0); MEAN PLATELET VOLUME 8.2 fL (7.9-10.8); MONOCYTES # (AUTO) 0.4 10^3/uL (0.0-1.0); MONOCYTES % (AUTO) 6.7 %; NEUTROPHILS % (AUTO) 73.2 %; PLT - PLATELET COUNT 180 10^3/uL (130-450); RED BLOOD COUNT 3.33 10^6/uL (4.20-5.40); RED CELL DISTRIBUTION WIDTH 11.9 % (12.0-15.0); WHITE BLOOD COUNT 5.4 x10^3/uL (4.8-10.8)
[2022-04-14 09:14] LABS: ALBUMIN 3.5 g/dL (3.2-5.5); ALBUMIN/GLOBULIN RATIO 1.2 (1.0-2.2); BILIRUBIN,TOTAL 0.5 mg/dL (0.2-1.0); CREATININE 0.6 mg/dL (0.4-1.0); POTASSIUM 3.7 mmol/L (3.5-5.0); TOTAL PROTEIN 6.5 g/dL (6.7-8.2)
[2022-04-14 09:18] LABS: BILIRUBIN,URINE NEGATIVE (NEGATIVE); GLUCOSE, URINE (UA) NEGATIVE (NEGATIVE); KETONES,URINE (UA) NEGATIVE (NEGATIVE); LEUKOCYTE ESTERASE, URINE NEGATIVE (NEGATIVE); NITRITE,URINE NEGATIVE (NEGATIVE); OCCULT BLOOD,URINE NEGATIVE (NEGATIVE); PH,URINE 7.5 PH (5.0-7.5); PROTEIN,URINE NEGATIVE (NEGATIVE); UROBILINOGEN,URINE 0.2 (NORMAL) E.U./dL (NORMAL)
[2022-04-14 09:25] LABS: CLARITY,URINE CLEAR (CLEAR); HCG UR QUAL NEGATIVE
[2022-04-14] MEDS ORDERED: diphenhydrAMINE INJ 50 MG/ML VIAL IVP STA (09:33)
[2022-04-14] MEDS ORDERED: KETAMINE 40 MG in SODIUM CHLORIDE 0.9% 100ML 100 ML IV STA (11:14)
--- NOTE | 2022-04-14 11:41 | ED Physician Documentation ---
PD HPI SKIN - Stated complaint Stated Complaint: POSS ALLERGIC REACTION - Chief complaint Chief Complaint: Allergic Rx - History obtained from History obtained from: Patient - History of Present Illness Timing - onset: Yesterday Timing - duration: Hours Timing - details: Gradual onset, Still present Location: [place] Quality / character: Itchy Improved by: Benadryl Associated symptoms: Other Contributing factors: Exposed to medication Similar symptoms before: Has not had sx before Recently seen: Clinic - Additional information Additional information: 31-year-old Miracle Acuña has developed some itchiness to her skin after increasing her dose of Lamictal. She has not developed an overt rash but feels itching over her entire body. She has taken some Benadryl and this has not been relieved. She reports that she has recently increased the dose of Lamictal from 100 mg twice a day to 200 mg twice a day. She has been taking this medication for almost 2 years. She has not had rash associated with this.She indicates that she has had her dose of Lamictal increased because of increasing depression. Review of Systems Constitutional: denies: Fever Eyes: denies: Decreased vision Ears: denies: Ear pain Nose: denies: Congestion Throat: denies: Sore throat Respiratory: denies: Cough GI: denies: Vomiting : denies: Dysuria, Frequency Skin: denies: Rash Musculoskeletal: denies: Neck pain, Back pain, Extremity pain Neurologic: denies: Generalized weakness, Focal weakness, Numbness PD PAST MEDICAL HISTORY - Past Medical History Past Medical History: Yes Cardiovascular: None Respiratory: None Neuro: None Endocrine/Autoimmune: None GI: None DEVELOPMENT ENG: None : None HEENT: None Psych: Depression, Anxiety, Eating disorder Musculoskeletal: None Derm: None - Past Surgical History Past Surgical History: No - Present Medications Home Medications: Ambulatory Orders Medication Instructions Recorded Confirmed Escitalopram [Lexapro] 10 mg pe DAILY PM 11/05/20 04/14/22 Mirtazapine [Remeron] 10 mg PO DAILY PM 11/05/20 04/14/22 lamoTRIgine [Lamictal Odt] 200 mg PO BID 11/05/20 04/14/22 traZODone [Desyrel] 50 mg PO DAILY 11/05/20 04/14/22 - Allergies Allergies/Adverse Reactions: Allergies Allergy/AdvReac Type Severity Reaction Status Date / Time No Known Drug Allergies Allergy Verified 11/07/20 17:02 - Social History Does the pt smoke?: No Smoking Status: Never smoker Does the pt drink ETOH?: No Does the pt have substance abuse?: No - Immunizations Immunizations are current?: Yes - POLST Patient has POLST: No PD ED PE NORMAL - Vitals Vital signs reviewed: Yes - General General: Alert and oriented X 3, No acute distress, Well developed/nourished - HEENT HEENT: Atraumatic, PERRL, EOMI, Pharynx benign, Other (There is mild periorbital swelling noted. ) - Neck Neck: Supple, no meningeal sign, No bony TTP - Cardiac Cardiac: RRR, No murmur - Respiratory Respiratory: No respiratory distress, Clear bilaterally - Abdomen Abdomen: Soft, Non tender - Back Back: No CVA TTP, No spinal TTP - Derm Derm: Normal color, Warm and dry, No rash - Extremities Extremities: No deformity, No edema - Neuro Neuro: Alert and oriented X 3, chief investigator 2-12 intact, No motor deficit, No sensory deficit, Normal speech Eye Opening: Spontaneous Motor: Obeys Commands Verbal: Oriented GCS Score: 15 - Psych Psych: Normal mood, Normal affect Results - Vitals Vitals: Vital Signs - 24 hr 04/14/22 04/14/22 04/14/22 08:16 09:30 11:15 Temperature 37.3 C 36.9 C Heart Rate 100 97 93 Respiratory 16 16 19 Rate Blood Pressure 133/90 H 132/88 H 127/86 H O2 Saturation 99 97 98 04/14/22 04/14/22 04/14/22 12:05 12:20 12:30 Temperature Heart Rate 89 98 98 Respiratory 14 16 14 Rate Blood Pressure 126/89 H 128/100 H 135/103 H O2 Saturation 98 99 98 04/14/22 04/14/22 12:45 13:25 Temperature 37.6 C Heart Rate 99 93 Respiratory 12 12 Rate Blood Pressure 134/103 H 121/87 H O2 Saturation 98 95 Oxygen O2 Source Room air - Labs Labs: Laboratory Tests 04/14/22 04/14/22 04/14/22 08:54 08:54 09:10 WBC 5.4 RBC 3.33 L Hgb 11.0 L Hct 34.1 L MCV 102.4 H MCH 33.0 H MCHC 32.3 RDW 11.9 L Plt Count 180 MPV 8.2 Neut # (Auto) 4.0 Lymph # (Auto) 1.0 L [place] # (Auto) 0.4 Eos # (Auto) 0.0 Baso # (Auto) 0.1 Absolute Nucleated RBC 0.00 Nucleated RBC % 0.0 Sodium 135 Potassium 3.7 Chloride 97 L Carbon Dioxide 28 Anion Gap 10.0 BUN 7 Creatinine 0.6 Estimated GFR (MDRD) 116 Glucose 85 Calcium 8.0 L Total Bilirubin 0.5 AST 29 ALT 21 Alkaline Phosphatase 59 Total Protein 6.5 L Albumin 3.5 Globulin 3.0 Albumin/Globulin Ratio 1.2 Lipase 39 Urine Color YELLOW Urine Clarity CLEAR Urine pH 7.5 Ur Specific [place] 1.015 Urine Protein NEGATIVE Urine Glucose (UA) NEGATIVE Urine Ketones NEGATIVE Urine Occult Blood NEGATIVE Urine Nitrite NEGATIVE Urine Bilirubin NEGATIVE Urine Urobilinogen 0.2 (NORMAL) Ur Leukocyte Esterase NEGATIVE Ur Microscopic Review NOT INDICATED Urine Culture Comments NOT INDICATED Urine HCG, Qual 04/14/22 09:10 WBC RBC Hgb Hct MCV MCH MCHC RDW Plt Count MPV Neut # (Auto) Lymph # (Auto) [place] # (Auto) Eos # (Auto) Baso # (Auto) Absolute Nucleated RBC Nucleated RBC % Sodium Potassium Chloride Carbon Dioxide Anion Gap BUN Creatinine Estimated GFR (MDRD) Glucose Calcium Total Bilirubin AST ALT Alkaline Phosphatase Total Protein Albumin Globulin Albumin/Globulin Ratio Lipase Urine Color Urine Clarity Urine pH Ur Specific [place] Urine Protein Urine Glucose (UA) Urine Ketones Urine Occult Blood Urine Nitrite Urine Bilirubin Urine Urobilinogen Ur Leukocyte Esterase Ur Microscopic Review Urine Culture Comments Urine HCG, Qual NEGATIVE PD MEDICAL DECISION MAKING - ED course Complexity details: reviewed old records, reviewed results, re-evaluated patient, considered differential, d/w patient ED course: 31-year-old Miracle Acuña has presented to the emergency department today with itching over her entire body after increasing her dose of Lamictal. She was asked by her primary to come to the emergency department for evaluation as the rash from Lamictal can be life-threatening. Today she is administered Benadryl intravenously as well as dexamethasone. She has improvement in her symptoms while she is here in the emergency department. She has been increased on her dose of Lamictal because of increasing depression. We are going to take her off of her Lamictal entirely and she is still going to have symptoms of depression and I have offered a ketamine infusion to the patient. She has readily accepted this and this was performed here in the emergency department without incident.The patient received 40 mg over 40 minutes. Departure - Departure Disposition: 01 Home, Self Care Clinical Impression: Medication reaction Qualifiers: Encounter type: initial encounter Qualified Code(s): T50.905A - Adverse effect of unspecified drugs, medicaments and biological substances, initial encounter Depression Qualifiers: Depression Type: major depressive disorder Major depression recurrence: recurrent Active/Remission status: currently active Major depression episode severity: mild Qualified Code(s): F33.0 - Major depressive disorder, recurrent, mild Condition: Stable Instructions: ED Drug React Allergic, ED Depression Follow-Up: Gloria Brown ARNP [Primary Care Provider] - Comments: Miracle, today it looks like the itching you have is likely related to your dose of Lamictal. The recommendation is to discontinue the medication entirely and to take Benadryl 25 mg every 6 hours for the next 2 days. Today we have given you an infusion of ketamine for depression. Follow-up with your primary for continued treatment of your depression. Discharge Date/Time: 04/14/22 13:30
[2022-04-14 13:47] VITALS: BP 121/87
== END 2022-04-14 13:30 | disposition home or self-care (01) ==
LOC: EDUNIT# → ED 08:16
DX: L29.9 Pruritus, unspecified (principal); R21 Rash and other nonspecific skin eruption; T50.905A Adverse effect of unspecified drugs, medicaments and biological substances, initial encounter; F33.0 Major depressive disorder, recurrent, mild
CPT/HCPCS: 36415; 51701; 51798; 80053; 81003; 81025; 83690; 85025; 96365; 96375; 99284; J1200; 81001; 87086

== ENCOUNTER 2022-06-03 00:44 | Emergency (ER) | payer MEDICARE, MEDICAID ==
--- NOTE | 2022-06-03 01:21 | ED Physician Documentation ---
PD HPI NVD - Stated complaint Stated Complaint: nausea and vomiting - Chief complaint Chief Complaint: General - History obtained from History obtained from: Patient - History of Present Illness Timing - onset: Enter time (18:00), Today Timing - details: Abrupt onset, Waxing and waning Pain level max: 0 Pain level now: 0 Associated symptoms: No: Fever, Abdominal pain, Chest pain, Hematemesis, Melena, Hematochezia, Near syncope / syncope Improved by: Other (nothing) Worsened by: Eating (any PO intake) Recently seen: Not recently seen - Additonal information Additional information: patient c/o nausea and vomiting since approximately 6 PM this evening, progressed to the point of unable to keep anything down. She had similar symptoms yesterday but they were milder and resolved. 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 Last drink was approximately 1 PM today. She tried zofran at home without improvement. Review of Systems Constitutional: denies: Fever, Chills, Sweats Cardiac: reports: Reviewed and negative Respiratory: reports: Reviewed and negative GI: reports: Nausea. denies: Abdominal Pain, Abdominal Swelling, Constipation, Diarrhea, Hematemesis, Bloody / black stool : denies: Dysuria, Frequency, Now EGA PD PAST MEDICAL HISTORY - Past Medical History Cardiovascular: None Respiratory: None Neuro: None Endocrine/Autoimmune: None GI: None DONATION SPECIALIST: None : None HEENT: None Psych: Depression, Anxiety, Eating disorder Musculoskeletal: None Derm: None - Past Surgical History Past Surgical History: No - Present Medications Home Medications: Ambulatory Orders Medication Instructions Recorded Confirmed Escitalopram [Lexapro] 10 mg pe DAILY PM 11/05/20 04/14/22 Mirtazapine [Remeron] 10 mg PO DAILY PM 11/05/20 04/14/22 lamoTRIgine [Lamictal Odt] 200 mg PO BID 11/05/20 04/14/22 traZODone [Desyrel] 50 mg PO DAILY 11/05/20 04/14/22 Promethazine [Phenergan] 25 mg PO Q6H PRN #10 tab 06/03/22 - Allergies Allergies/Adverse Reactions: Allergies Allergy/AdvReac Type Severity Reaction Status Date / Time lamotrigine Allergy Hives Verified 06/03/22 00:49 - Social History Does the pt smoke?: No Smoking Status: Never smoker Does the pt drink ETOH?: No Does the pt have substance abuse?: No - Immunizations Immunizations are current?: Yes - POLST Patient has POLST: No PD ED PE NORMAL - Vitals Vital signs reviewed: Yes - General General: Alert and oriented X 3, No acute distress (mostly NAD although after H+P completed and as we were discussing plan (IV , fluids, antinauseants), patient suddenly had to vomit and didn't want to use the emesis bag and so she ran into the bathroom and vomited), Well developed/nourished - HEENT HEENT: Other (tacky/pasty mucous membranes) - Cardiac Cardiac: RRR, No murmur - Respiratory Respiratory: No respiratory distress, Clear bilaterally - Abdomen Abdomen: Normal bowel sounds, Soft, Non tender, Non distended - Derm Derm: Normal color, Warm and dry Results - Vitals Vitals: Oxygen O2 Source Room air - Labs Labs: Laboratory Tests 06/03/22 06/03/22 01:54 01:54 WBC 4.8 RBC 4.03 L Hgb 13.3 Hct 40.5 MCV 100.5 H MCH 33.0 H MCHC 32.8 RDW 13.1 Plt Count 257 MPV 9.6 Neut # (Auto) 3.4 Lymph # (Auto) 1.0 L [place] # (Auto) 0.3 Eos # (Auto) 0.0 Baso # (Auto) 0.1 Absolute Nucleated RBC 0.00 Nucleated RBC % 0.0 Sodium 139 Potassium 3.8 Chloride 101 Carbon Dioxide 26 Anion Gap 12.0 BUN 15 Creatinine 0.7 Estimated GFR (MDRD) 96 Glucose 115 H Calcium 8.9 Total Bilirubin 0.6 AST 25 ALT 16 Alkaline Phosphatase 66 Total Protein 7.5 Albumin 4.1 Globulin 3.4 Albumin/Globulin Ratio 1.2 Lipase 33 PD MEDICAL DECISION MAKING - ED course Complexity details: reviewed old records, reviewed results, re-evaluated patient, considered differential, d/w patient ED course: nausea and vomiting today in context of regular and heavy drinking for two months. She is given two liters IV NS and total of 12 mg zofran (8mg IV followed by 4mg IV) and on reevaluation she reports feeling much improved and comfortable with d/c home. Blood tests (CBC, ER abdominal panel) are without concerning findings. She is nontender on abdominal exam. Results d/w patient, return precautions discussed. She says she has more zofran at home; I provided a prescription for phenergan to be used if the zofran is ineffective. I discussed with her that the likely cause of her symptoms is alcoholic gastritis. Departure - Departure Disposition: Home, Self Care Clinical Impression: Gastritis Qualifiers: Gastritis type: alcoholic Chronicity: acute Gastritis bleeding: presence of bleeding unspecified Qualified Code(s): K29.20 - Alcoholic gastritis without bleeding Condition: Good Instructions: ED Gastritis Follow-Up: Gloria Brown ARNP [Primary Care Provider] - Prescriptions: Promethazine [Phenergan] 25 mg PO Q6H PRN #10 tab PRN Reason: Nausea / Vomiting Comments: There were no concerning findings on tonight's blood tests. As we discussed, the most likely explanation for your symptoms is gastritis due to your ongoing alcohol intake. A prescription for phenergan has been electronically submitted to [facility] in [place]. This is an antinausea medication different from ondansetron/zofran and you can take it if the zofran is ineffective at controlling nausea. Discharge Date/Time: 06/03/22 05:06
[2022-06-03] MEDS ORDERED: SODIUM CHLORIDE 0.9% 1,000 ML IV STA ×2 (01:46→03:28)
[2022-06-03] MEDS ORDERED: ONDANSETRON 4 MG/2 ML VIAL IVP STA ×2 (01:46→03:28)
[2022-06-03 02:01] LABS: BASOPHILS # (AUTO) 0.1 10^3/uL (0.0-0.1); BASOPHILS % (AUTO) 1.3 %; EOSINOPHILS % (AUTO) 0.4 %; HCT - HEMATOCRIT 40.5 % (37.0-47.0); HGB - HEMOGLOBIN 13.3 g/dL (12.0-16.0); LYMPHOCYTES % (AUTO) 20.5 %; MEAN CORPUSCULAR HGB CONC 32.8 g/dL (32.0-36.0); MEAN CORPUSCULAR VOLUME 100.5 fL (81.0-99.0); MEAN PLATELET VOLUME 9.6 fL (7.9-10.8); MONOCYTES # (AUTO) 0.3 10^3/uL (0.0-1.0); MONOCYTES % (AUTO) 6.1 %; NEUTROPHILS # (AUTO) 3.4 10^3/uL (1.5-6.6); NEUTROPHILS % (AUTO) 71.1 %; PLT - PLATELET COUNT 257 10^3/uL (130-450); RED BLOOD COUNT 4.03 10^6/uL (4.20-5.40); RED CELL DISTRIBUTION WIDTH 13.1 % (12.0-15.0); WHITE BLOOD COUNT 4.8 x10^3/uL (4.8-10.8)
[2022-06-03 02:13] LABS: ALBUMIN 4.1 g/dL (3.2-5.5); ALBUMIN/GLOBULIN RATIO 1.2 (1.0-2.2); BILIRUBIN,TOTAL 0.6 mg/dL (0.2-1.0); CALCIUM 8.9 mg/dL (8.5-10.3); CREATININE 0.7 mg/dL (0.4-1.0); POTASSIUM 3.8 mmol/L (3.5-5.0); TOTAL PROTEIN 7.5 g/dL (6.7-8.2)
[2022-06-03 05:06] VITALS: BP 115/70
== END 2022-06-03 05:06 | disposition home or self-care (01) ==
LOC: ED 00:44
DX: K29.20 Alcoholic gastritis without bleeding (principal)
CPT/HCPCS: 36415; 80053; 83690; 85025; 96374; 96376; 99283

== ENCOUNTER 2022-11-01 13:00 | Outpatient (CLI) | payer MEDICARE, MEDICAID ==
--- NOTE | 2022-11-01 15:42 | Ultrasound Report ---
PROCEDURE: Pelvic w/Transvaginal INDICATIONS: Prior right cystectomy versus oophorectomy. History of endometrioma. TECHNIQUE: Real-time scanning was performed of the pelvic organs, with image documentation. Additional endovagi nal scanning was necessary due to incomplete visualization of the adnexal and endometrial structures by transabdominal scanning. COMPARISON: Pelvic ultrasound 11/07/2020 FINDINGS: Uterus: Uterus is anteverted and normal in size at 7.7 x 5.5 x 2.9 cm. The myometrium is homogeneou s. The endometrium measures 3 mm in combined thickness. Ovaries: The right ovary is not visualized, may be surgically absent versus obscured by bowel gas. The left ovary measures 6.7 x 6.3 x 5.2 cm, with a calculated ovarian volume of 114 cc. Much of the o vary is occupied by an avascular/complex cystic structure measuring 5.5 x 4.7 x 5.0 cm. Some areas of the structure demonstrate low-level internal echoes, other areas are more heterogeneous in echotextu re with anechoic and hyperechoic portions present. This finding is new compared to the prior exam. Other: No pathologic free abdominal or pelvic fluid. IMPRESSION: 1. A 5.5 cm structure is present in the left ovary, likely a complex cyst. This could represent an en dometrioma given prior history of endometriosis but is nonspecific and a hemorrhagic cyst or other et iologies are also possible. 2. The right ovary is not visualized, possibly surgically absent versus obscured by bowel gas. Correl ation with prior surgical history may be helpful. 3. Unremarkable sonographic appearance of the uterus. Reviewed by: Min Sidhu MD on 11/01/2022 3:40 PM PST Approved by: Min Sidhu MD on 11/01/2022 3:40 PM PST Station ID: [id number]
== END 2022-11-01 13:01 | disposition home or self-care (01) ==
LOC: DI 13:00
PROVIDERS: ATTEND Obstetrics & Gynecology Gynecologic Oncology
DX: N83.9 Noninflammatory disorder of ovary, fallopian tube and broad ligament, unspecified (principal)

== ENCOUNTER 2023-01-02 13:03 | Outpatient (CLI) | payer MEDICARE, MEDICAID ==
--- NOTE | 2023-01-02 18:56 | Ultrasound Report ---
PROCEDURE: Pelvic w/Transvaginal INDICATIONS: OVARIAN CYST TECHNIQUE: Real-time scanning was performed of the pelvic organs, with image documentation. Additional endovagi nal scanning was necessary due to incomplete visualization of the adnexal and endometrial structures by transabdominal scanning. COMPARISON: None. FINDINGS: Uterus: Uterus is anteverted and normal in size at 7.3 x 3.5 x 3.9 cm. The myometrium is homogeneou s. The endometrium measures 3.8 mm in combined thickness. Ovaries: Right oophorectomy. Left ovary measures 7.1 x 4.7 x 6.9 cm corresponding to 320 cc volume is a complex cyst or endometrioma measuring 6.1 x 3.9 x 6.3 within the ovary. No internal vascularity. No free fluid or adnexal mass Other: No pathologic free abdominal or pelvic fluid. IMPRESSION: Large left ovarian hemorrhagic cyst or endometrioma measures 6.3 cm. Consider follow-up MRI Reviewed by: Zane Bravo MD on 01/02/2023 5:55 PM [facility] Approved by: Zane Bravo MD on 01/02/2023 5:55 PM [facility] Station ID: [id number]
== END 2023-01-02 13:04 | disposition home or self-care (01) ==
LOC: DI 13:03
PROVIDERS: ATTEND Obstetrics & Gynecology Gynecologic Oncology
DX: N80.109 Endometriosis of ovary, unspecified side, unspecified depth (principal); N83.202 Unspecified ovarian cyst, left side

== ENCOUNTER 2023-08-01 16:44 | Outpatient (CLI) | payer MEDICARE, MEDICAID ==
--- NOTE | 2023-08-02 21:29 | Ultrasound Report ---
PROCEDURE: Pelvic w/Transvaginal INDICATIONS: ENDOMETRIOSIS OF OVARY TECHNIQUE: Transabdominal/transvaginal ultrasound of the pelvis was obtained. Endovaginal scanning wa s necessary due to incomplete visualization of the adnexal and endometrial structures by transabdomin al scanning. COMPARISON: None. FINDINGS: Uterine size: Uterus measures 6.2 x 3.0 x 4.1 cm, and is anteverted. Myometrium: The myometrium is heterogenous. Endometrium: The endometrium measures 4 mm in combined thickness. Right ovary: Nonvisualized Left ovary: The left ovary measures 3.3 x 2.2 by 1.8 cm. Calculated ovarian volume of 7.0 cc. Trace fluid noted in the endocervical canal Other: No pathologic free abdominal or pelvic fluid. IMPRESSION: Nonvisualized right ovary. Left ovary unremarkable. No adnexal mass Reviewed by: Zane Bravo MD on 08/02/2023 8:27 PM [facility] Approved by: Zane Bravo MD on 08/02/2023 8:27 PM [facility]DT Station ID: [id number]
== END 2023-08-01 16:45 | disposition home or self-care (01) ==
LOC: DI 16:44
PROVIDERS: ATTEND Obstetrics & Gynecology
DX: N80.109 Endometriosis of ovary, unspecified side, unspecified depth (principal)

== ENCOUNTER 2023-10-01 17:31 | Outpatient (CLI) | payer MEDICARE, MEDICAID ==
--- NOTE | 2023-10-02 12:59 | XRAY Report ---
PROCEDURE: Sinus Complete INDICATIONS: NASAL POLYP TECHNIQUE: 4 views of the sinuses were acquired. COMPARISON: None. FINDINGS: Sinuses: Air-fluid level within the left maxillary sinus. Bones: No suspicious bony lesions. Nasal septum is midline. IMPRESSION: Air-fluid level within the left maxillary sinus, suggestive of sinusitis. Reviewed by: Vikas Bejarano on 10/02/2023 12:58 PM [facility] Approved by: Vikas Bejarano on 10/02/2023 12:58 PM [facility] Station ID: [id number]
== END 2023-10-01 17:32 | disposition home or self-care (01) ==
LOC: DI.S 17:31
PROVIDERS: ATTEND Registered Nurse
DX: J33.9 Nasal polyp, unspecified (principal)

== ENCOUNTER 2023-11-25 10:44 | Outpatient (CLI) | payer MEDICARE, MEDICAID ==
[2023-11-25 15:18] LABS: BASOPHILS % (AUTO) 0.8 %; EOSINOPHILS % (AUTO) 1.1 %; HCT - HEMATOCRIT 39.5 % (37.0-47.0); HGB - HEMOGLOBIN 13.2 g/dL (12.0-16.0); LYMPHOCYTES # (AUTO) 1.8 10^3/uL (1.5-3.5); LYMPHOCYTES % (AUTO) 48.6 %; MEAN CORPUSCULAR HEMOGLOBIN 32.6 pg (27.0-31.0); MEAN CORPUSCULAR HGB CONC 33.4 g/dL (32.0-36.0); MEAN CORPUSCULAR VOLUME 97.5 fL (81.0-99.0); MEAN PLATELET VOLUME 9.6 fL (7.9-10.8); MONOCYTES # (AUTO) 0.4 10^3/uL (0.0-1.0); MONOCYTES % (AUTO) 11.2 %; NEUTROPHILS # (AUTO) 1.4 10^3/uL (1.5-6.6); PLT - PLATELET COUNT 279 10^3/uL (130-450); RED BLOOD COUNT 4.05 10^6/uL (4.20-5.40); RED CELL DISTRIBUTION WIDTH 11.9 % (12.0-15.0); WHITE BLOOD COUNT 3.7 x10^3/uL (4.8-10.8)
[2023-11-25 15:39] LABS: ALBUMIN 4.2 g/dL (3.2-5.5); ALBUMIN/GLOBULIN RATIO 1.6 (1.0-2.2); ALKALINE PHOSPHATASE 25 IU/L (42-121); ALT ALANINE AMINOTRANSFERASE 10 IU/L (10-60); AST ASPARTATE AMINOTRANSFERASE 14 IU/L (10-42); BILIRUBIN,TOTAL 0.3 mg/dL (0.2-1.0); BUN - BLOOD UREA NITROGEN 7 mg/dL (6-20); CALCIUM 8.9 mg/dL (8.5-10.3); CARBON DIOXIDE - CO2 27 mmol/L (21-32); CHLORIDE 97 mmol/L (101-111); CHOL/HDL RATIO 2.6 (<4.4); CHOLESTEROL 184 mg/dL; CREATININE 0.8 mg/dL (0.6-1.3); GFR - MDRD 82 (>89); GLUCOSE 88 mg/dL (74-104); HDL CHOLESTEROL 72 mg/dL; LDL CHOLESTEROL,CALCULATED 103 mg/dL; LDL/HDL RATIO 1.4 (<4.4); POTASSIUM 3.9 mmol/L (3.5-4.5); SODIUM 130 mmol/L (135-145); TOTAL PROTEIN 6.8 g/dL (6.4-8.9); TRIGLYCERIDES 46 mg/dL (48-352); VLDL CHOLESTEROL 9 mg/dL
[2023-11-25 16:38] LABS: THYROID STIMULATING HORMONE 0.93 uIU/mL (0.34-5.60)
[2023-11-25 19:56] LABS: CHLAMYDIA TRACHOMATIS DNA NEGATIVE (NEGATIVE); NEISSERIA GONORRHOEAE DNA NEGATIVE (NEGATIVE); TRICHOMONAS VAGINALIS DNA NEGATIVE (NEGATIVE)
== END 2023-11-25 10:45 | disposition home or self-care (01) ==
LOC: LAB.S 10:44
PROVIDERS: ATTEND Registered Nurse
DX: F50.9 Eating disorder, unspecified (principal); Z12.4 Encounter for screening for malignant neoplasm of cervix; Z13.228 Encounter for screening for other metabolic disorders; Z13.220 Encounter for screening for lipoid disorders; Z13.29 Encounter for screening for other suspected endocrine disorder; Z13.0 Encounter for screening for diseases of the blood and blood-forming organs and certain disorders involving the immune mechanism
CPT/HCPCS: 36415; 80053; 80061; 82306; 82607; 83721; 84425; 84443; 85025; 87491; 87591; 87661

== ENCOUNTER 2024-03-07 13:41 | Outpatient (CLI) | payer MEDICARE, MEDICAID ==
--- NOTE | 2024-03-07 17:25 | Ultrasound Report ---
PROCEDURE: Soft Tissue Head or Neck INDICATIONS: LYMPHADENOPATHY TECHNIQUE: Real-time scanning was performed of the thyroid gland, with image documentation. COMPARISON: None FINDINGS: Symmetric appearance of the submandibular glands as well as tonsils. Tonsils are somewhat heterogeneo us in echogenicity. No focal fluid collections. No enlarged lymph nodes. IMPRESSION: No adenopathy. Mild heterogeneous appearance of the tonsils overall nonspecific. No focal mass. Reviewed by: Madison Echols MD on 03/07/2024 5:24 PM PDT Approved by: Madison Echols MD on 03/07/2024 5:24 PM PDT Station ID: [id number]
== END 2024-03-07 13:42 | disposition home or self-care (01) ==
LOC: DI 13:41
PROVIDERS: ATTEND Registered Nurse
DX: R59.1 Generalized enlarged lymph nodes (principal)

== ENCOUNTER 2024-03-30 11:37 | Outpatient (CLI) | payer MEDICARE, MEDICAID ==
[2024-03-30 14:28] LABS: BASOPHILS # (AUTO) 0.1 10^3/uL (0.0-0.1); BASOPHILS % (AUTO) 0.8 %; EOSINOPHILS # (AUTO) 0.1 10^3/uL (0.0-0.7); EOSINOPHILS % (AUTO) 1.8 %; HCT - HEMATOCRIT 34.7 % (37.0-47.0); HGB - HEMOGLOBIN 10.9 g/dL (12.0-16.0); LYMPHOCYTES # (AUTO) 1.8 10^3/uL (1.5-3.5); LYMPHOCYTES % (AUTO) 29.6 %; MEAN CORPUSCULAR HEMOGLOBIN 30.1 pg (27.0-31.0); MEAN CORPUSCULAR HGB CONC 31.4 g/dL (32.0-36.0); MEAN CORPUSCULAR VOLUME 95.9 fL (81.0-99.0); MEAN PLATELET VOLUME 9.7 fL (7.9-10.8); MONOCYTES # (AUTO) 0.4 10^3/uL (0.0-1.0); MONOCYTES % (AUTO) 7.1 %; NEUTROPHILS # (AUTO) 3.8 10^3/uL (1.5-6.6); NEUTROPHILS % (AUTO) 60.5 %; PLT - PLATELET COUNT 326 10^3/uL (130-450); RED BLOOD COUNT 3.62 10^6/uL (4.20-5.40); RED CELL DISTRIBUTION WIDTH 13.2 % (12.0-15.0); WHITE BLOOD COUNT 6.2 x10^3/uL (4.8-10.8)
[2024-03-30 15:53] LABS: ALBUMIN/GLOBULIN RATIO 1.8 (1.0-2.2); BILIRUBIN,TOTAL 0.2 mg/dL (0.2-1.0); CALCIUM 9.1 mg/dL (8.5-10.3); CREATININE 0.7 mg/dL (0.6-1.3); POTASSIUM 4.2 mmol/L (3.5-4.5); TOTAL PROTEIN 6.2 g/dL (6.4-8.9)
[2024-03-30 15:58] LABS: THYROID STIMULATING HORMONE 1.92 uIU/mL (0.34-5.60)
[2024-03-31 08:11] LABS: ESTRADIOL 8.2 pg/mL (.); PROGESTERONE 0.2 ng/mL (.)
== END 2024-03-30 11:38 | disposition home or self-care (01) ==
LOC: LAB.S 11:37
PROVIDERS: ATTEND Registered Nurse
DX: N91.2 Amenorrhea, unspecified (principal); R68.83 Chills (without fever); N95.1 Menopausal and female climacteric states; R23.2 Flushing; M62.81 Muscle weakness (generalized); R53.83 Other fatigue; R53.81 Other malaise
CPT/HCPCS: 36415; 80053; 82670; 83001; 83002; 84144; 84403; 84439; 84443; 84481; 85025

== ENCOUNTER 2024-04-18 12:38 | Outpatient (CLI) | payer MEDICARE, MEDICAID ==
--- NOTE | 2024-04-19 10:19 | Ultrasound Report ---
PROCEDURE: Pelvic w/Transvaginal INDICATIONS: OVARIAN CYST TECHNIQUE: Real-time scanning was performed of the pelvic organs, with image documentation. Additional endovagi nal scanning was necessary due to incomplete visualization of the adnexal and endometrial structures by transabdominal scanning. COMPARISON: Pelvic ultrasound 05/01/2023, 01/02/2023 FINDINGS: Uterus: Uterus is anteverted and normal in size at 6.2 x 3.1 x 3.6 cm. The myometrium is homogeneou s. The endometrium measures 3 mm in combined thickness. Ovaries: The right ovary is not visualized. The left ovary measures 1.5 x 1.3 x 1 point cm, with a calculated ovarian volume of 1.0 cc. The ovaries have a normal sonographic appearance. Less than 12 follicles can be seen in each ovary. No adnexal masses are seen. No cystic lesions measuring greate r than 3 cm. Other: No pathologic free abdominal or pelvic fluid. IMPRESSION: Stable interval exam. Right ovaries not visualized. Adnexal region is unremarkable. No visualized ovarian cyst. Reviewed by: Madison Echols MD on 04/19/2024 10:18 AM PDT Approved by: Madison Echols MD on 04/19/2024 10:18 AM PDT Station ID: [id number]
== END 2024-04-18 12:39 | disposition home or self-care (01) ==
LOC: DI 12:38
PROVIDERS: ATTEND Obstetrics & Gynecology
DX: N80.9 Endometriosis, unspecified (principal); Z87.42 Personal history of other diseases of the female genital tract

== ENCOUNTER 2024-05-11 14:28 | Outpatient (CLI) | payer MEDICARE, MEDICAID ==
[2024-05-11 20:06] LABS: BASOPHILS % (AUTO) 0.7 %; EOSINOPHILS # (AUTO) 0.1 10^3/uL (0.0-0.7); EOSINOPHILS % (AUTO) 1.4 %; HCT - HEMATOCRIT 40.9 % (37.0-47.0); HGB - HEMOGLOBIN 12.8 g/dL (12.0-16.0); LYMPHOCYTES # (AUTO) 1.7 10^3/uL (1.5-3.5); MEAN CORPUSCULAR HEMOGLOBIN 31.1 pg (27.0-31.0); MEAN CORPUSCULAR HGB CONC 31.3 g/dL (32.0-36.0); MEAN CORPUSCULAR VOLUME 99.5 fL (81.0-99.0); MEAN PLATELET VOLUME 9.9 fL (7.9-10.8); MONOCYTES # (AUTO) 0.5 10^3/uL (0.0-1.0); MONOCYTES % (AUTO) 8.6 %; NEUTROPHILS # (AUTO) 3.4 10^3/uL (1.5-6.6); NEUTROPHILS % (AUTO) 59.3 %; PLT - PLATELET COUNT 270 10^3/uL (130-450); RED BLOOD COUNT 4.11 10^6/uL (4.20-5.40); RED CELL DISTRIBUTION WIDTH 15.6 % (12.0-15.0); WHITE BLOOD COUNT 5.7 x10^3/uL (4.8-10.8)
== END 2024-05-11 14:29 | disposition home or self-care (01) ==
LOC: LAB.S 14:28
PROVIDERS: ATTEND Registered Nurse
DX: D64.9 Anemia, unspecified (principal)
CPT/HCPCS: 36415; 82607; 82746; 83540; 84466; 85025

== ENCOUNTER 2024-07-03 18:31 | Outpatient (CLI) | payer MEDICARE, MEDICAID ==
[2024-07-03 19:27] LABS: BASOPHILS % (AUTO) 0.4 %; EOSINOPHILS # (AUTO) 0.1 10^3/uL (0.0-0.7); EOSINOPHILS % (AUTO) 0.8 %; HCT - HEMATOCRIT 39.5 % (37.0-47.0); HGB - HEMOGLOBIN 12.8 g/dL (12.0-16.0); LYMPHOCYTES # (AUTO) 1.5 10^3/uL (1.5-3.5); LYMPHOCYTES % (AUTO) 16.8 %; MEAN CORPUSCULAR HEMOGLOBIN 31.9 pg (27.0-31.0); MEAN CORPUSCULAR HGB CONC 32.4 g/dL (32.0-36.0); MEAN CORPUSCULAR VOLUME 98.5 fL (81.0-99.0); MEAN PLATELET VOLUME 8.8 fL (7.9-10.8); MONOCYTES # (AUTO) 0.5 10^3/uL (0.0-1.0); MONOCYTES % (AUTO) 5.4 %; NEUTROPHILS # (AUTO) 6.8 10^3/uL (1.5-6.6); NEUTROPHILS % (AUTO) 76.3 %; PLT - PLATELET COUNT 248 10^3/uL (130-450); RED BLOOD COUNT 4.01 10^6/uL (4.20-5.40); RED CELL DISTRIBUTION WIDTH 13.2 % (12.0-15.0)
[2024-07-03 19:45] LABS: ALBUMIN 4.2 g/dL (3.2-5.5); ALBUMIN/GLOBULIN RATIO 1.4 (1.0-2.2); BILIRUBIN,TOTAL 0.4 mg/dL (0.2-1.0); CALCIUM 9.5 mg/dL (8.5-10.3); CREATININE 0.8 mg/dL (0.6-1.3); CRP - C-REACTIVE PROTEIN 19.4 mg/dL (<0.5); POTASSIUM 4.7 mmol/L (3.5-4.5); TOTAL PROTEIN 7.1 g/dL (6.4-8.9)
[2024-07-03 19:56] LABS: THYROID STIMULATING HORMONE 0.92 uIU/mL (0.34-5.60)
[2024-07-03 20:06] LABS: INFECTIOUS MONONUCLEOSIS NEGATIVE (Negative)
[2024-07-03 20:41] LABS: ESTIMATED AVERAGE GLUCOSE 100 mg/dL (70-100); HEMOGLOBIN A1c% 5.1 % (4.27-6.07)
[2024-07-05 13:10] LABS: EBV AB VCA IGM <36.0 U/mL (0.0-35.9)
[2024-07-06 17:08] LABS: ANTINUCLEAR ANTIBODIES IFA Negative (.)
== END 2024-07-03 18:32 | disposition home or self-care (01) ==
LOC: LAB 18:31
PROVIDERS: ATTEND Registered Nurse
DX: D64.9 Anemia, unspecified (principal); N91.2 Amenorrhea, unspecified; R68.83 Chills (without fever); N95.1 Menopausal and female climacteric states; R53.83 Other fatigue; F32.A Depression, unspecified; G47.00 Insomnia, unspecified; F43.10 Post-traumatic stress disorder, unspecified; M62.81 Muscle weakness (generalized)
CPT/HCPCS: 36415; 80053; 81599; 83036; 84436; 84443; 84481; 85025; 85651; 86038; 86140; 86308; 86376; 86664; 86665; 86800

== ENCOUNTER 2025-04-14 15:11 | Inpatient (IN) ==
--- NOTE | 2025-04-14 15:19 | ED Physician Documentation ---
PD HPI NVD Stated complaint Stated Complaint: ABD PAIN/ETOH Chief complaint Chief Complaint: Abd Pain History obtained from History obtained from: Patient and EMS (Report is the patient has had nausea and vomiting for the last 4 days. Able to drink alcohol only and not any foods. Repetitive vomiting without any diarrhea. Denies hematemesis. Has upper abdominal pain with cramping.) Meds/Allgy Home Medications Ambulatory Orders Medication Instructions Recorded Confirmed levomilnacipran 120 mg capsule,24 120 mg PO QDAY #30 c aps 10/15/24 02/07/25 hr,extended release (Fetzima) sumatriptan succinate 100 mg tablet See Rx Instruction s PO .COMPLEX 11/12/24 02/07/25 ondansetron 8 mg disintegrating See Rx Instructions .R oute 12/03/24 02/07/25 tablet .COMPLEX #20 tabs ferrous fumarate 324 mg (106 mg 324 mg PO QDAY #30 tab s 01/07/25 02/07/25 iron) tablet suvorexant 10 mg tablet 10 mg PO HS #30 tabs 5 bupropion HCl 300 mg 24 hr tablet, 300 mg PO QAM #30 t abs 03/17/25 03/17/25 extended release lurasidone 60 mg tablet 60 mg PO DAILY #30 tabs 02/2303/17/25 semaglutide (weight loss) 0.25 1 mg subcut QWEEK 03/1703/17/25 mg/0.5 mL subcutaneous pen injector famotidine 20 mg tablet 20 mg PO DAILY #30 tabs 03/25 01/18 lorazepam 1 mg tablet (Ativan) 1 mg PO TID PRN alcohol withdrawal 04/14/25 #14 tabs ondansetron 4 mg disintegrating 4 mg PO QID PRN nausea and 04/14/25 tablet vomiting #14 tabs prochlorperazine 25 mg rectal 25 mg GA TID PRN nausea and 04/14/25 suppository (Compazine) vomiting #6 ea prochlorperazine maleate 10 mg 10 mg PO TID PRN nausea and 04/14/25 tablet (Compazine) vomiting #20 tabs Allergies Allergies Allergy/AdvReac Type Severity Reaction Status Date / Time lamotrigine Allergy Anaphylaxis Verified 04/14/25 15:20 PFSH Active Problems All Active Problems (Updated 04/14/25 @ 19:10 by Yrn Barnett MD) Alcohol intoxication (Acute) Acute alcoholic gastritis (Acute) Intractable vomiting with nausea (Acute) 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 (Acute) Alcohol use education declined (Acute) Medication reaction (Acute) Leg cramping (Acute) Dizziness on standing (Acute) Alcohol use disorder, severe, in early remission (Acute) Insomnia (Acute) Encounter for long-term current use of medication (Acute) Complex posttraumatic stress disorder (Acute) Attention deficit hyperactivity disorder (Acute) Binge eating disorder, moderate (Acute) Generalized anxiety disorder with panic attacks (Acute) Mood disorder of depressed type (Acute) Insomnia due to mental disorder (Acute) Borderline personality disorder (Acute) Medical History Medical History Alcohol use disorder, severe, dependence Alcohol use disorder Abdominal pain Ovarian mass, right Urinary (tract) obstruction Hydronephrosis Urinary retention Ovarian cyst Gastritis History of suicidal behavior Alcohol abuse Social History Social History (Updated 11/19/24 @ 14:22 by Katelynn Fitzgerald RN) Smoking Status: Current every day smoker Second hand tobacco smoke exposure: No (used marijuana) Do you dip or chew tobacco?: No Do you vape?: No Patient requests smoking cessation consult: No Initiate information on smoking cessation: No Living arrangement: At home Relationship: Level: Independent Do you feel safe in your home environment?: Yes Suffered physical, verbal, emotional, or financial abuse?: No History of Abuse: No ETOH Use: Frequency: Daily Substance Use: denies use Are you sexually active?: No POLST Patient has POLST: No Exam Exam Vital Signs: Vital Signs x48h Temp Pulse Resp BP Pulse Ox 04/14/25 18:50 109 H 18 113/78 98 04/14/25 15:16 36.6 C 114 H 24 124/87 99 Results Vitals Vitals: Vital Signs - 24 hr 04/14/25 15:16 04/14/25 18:50 04/14/25 20:22 Temperature 36.6 C Temperature Source Temporal Artery Scan Pulse Rate 114 H 109 H 95 Respiratory Rate 24 18 16 Blood Pressure 124/87 113/78 120/81 O2 Saturation 99 98 96 O2 Source Room air Room air Room air Pain Intensity 10 2 Oxygen O2 Source Room air Labs Labs: Laboratory Tests 04/14/25 04/14/25 04/14/25 15:29 16:44 16:44 WBC 7.6 RBC 4.65 Hgb 14.7 Hct 43.1 MCV 92.7 MCH 31.6 H MCHC 34.1 RDW 13.1 Plt Count 388 MPV 8.6 Neut # (Auto) 5.0 Lymph # (Auto) 2.1 Mclennan # (Auto) 0.4 Eos # (Auto) 0.0 Baso # (Auto) 0.1 Absolute Nucleated RBC 0.00 Nucleated RBC % 0.0 Sodium 142 Potassium 3.7 Chloride 102 Carbon Dioxide 20 L Anion Gap 20.0 H BUN 15 Creatinine 0.8 Estimated GFR (MDRD) 82 L Glucose 80 Calcium 8.4 L Magnesium 1.9 Total Bilirubin 0.5 AST 28 ALT 32 Alkaline Phosphatase 60 Total Protein 6.9 Albumin 4.4 Globulin 2.5 Albumin/Globulin Ratio 1.8 Lipase 38 Serum HCG, Qual NEGATIVE Urine Color LIGHT YELLOW Urine Clarity CLEAR Urine pH 6.0 Ur Specific [place] 1.025 Urine Protein TRACE Urine Glucose (UA) NEGATIVE Urine Ketones 40 H Urine Occult Blood TRACE-LYSE Urine Nitrite NEGATIVE Urine Bilirubin NEGATIVE Urine Urobilinogen 0.2 (NORMAL) Ur Leukocyte Esterase TRACE H Urine RBC None Seen Urine WBC 6-10 H Ur Epithelial Cells FEW Renal Tubular FEW Transitional Ur Squamous Epith Cells FEW Squamous Urine Bacteria Rare Ur Microscopic Review INDICATED Urine Culture Comments INDICATED Ur Buprenorphine Scrn NEGATIVE Ur Morphine Screen NEGATIVE Ur Oxycodone Screen NEGATIVE Urine Methadone Screen NEGATIVE Ur Barbiturates Screen NEGATIVE Ur Phencyclidine Scrn NEGATIVE Ur Amphetamine Screen NEGATIVE U Methamphetamines Scrn NEGATIVE Urine MDMA Screen NEGATIVE U Benzodiazepines Scrn NEGATIVE Urine Cocaine Screen NEGATIVE U Cannabinoids Screen POSITIVE H Ur Drug Screen Comment CUTOFF CONC BELOW: Ethyl Alcohol 224.5 PD Medical Decision Making ED course Complexity details: re-evaluated patient (still significant Nausea after mutliple rounds of meds. ) and d/w patient ED course: Report is the patient has had nausea and vomiting for the last 4 days. Able to drink alcohol only and not any foods. Repetitive vomiting without any diarrhea. Denies hematemesis. Has upper abdominal pain with cramping. The patient states she has been having regular alcohol use. She been unable to have any food or fluids otherwise the last 4 days. She had been still drinking. Here in the ER she is having retching without any hematemesis nor actual stomach contents. She was given doses of antiemetics to include droperidol with IV fluids and famotidine initially and then a repeat dose of droperidol. Subsequently Compazine. She had received ondansetron by EMS. She was having less nausea and felt moderately improved after the last doses of these and was hoping to try to go home. She took some sips of yvon ac and water and became quite nauseated again with upper abdominal discomfort. My impression is she is not going to do well with home even with ondansetron ODT. I offered hospitalization given the intractable nausea and vomiting. She would prefer home to be able to feed her cats and does not have anyone that can go take care of them. At this point she wanted to try 1 more course of medicine before deciding. We will give some more ondansetron at this point. We can try some antacid as well for the stomach but unlikely to be able to keep that down well. My impression is she will do better with hospitalization but the patient still is not at the point of deciding 1 way or the other. Discharge Plan Discharge Patient Disposition: ED Place in Observation Condition: Stable Clinical Impression: Intractable vomiting with nausea, Acute alcoholic gastritis, Alcohol intoxication Interventions: ED Admission Assessment Last Done: 04/14/25 22:07
[2025-04-14] MEDS: DROPERIDOL 5 MG/2 ML VIAL IVP STA ×2 (15:30→17:39)
[2025-04-14] MEDS: FAMOTIDINE 20 MG/2 ML VIAL IVP STA (15:30)
[2025-04-14] MEDS: SODIUM CHLORIDE 0.9% 1,000 ML IV STA ×2 (15:31→21:44)
[2025-04-14 15:33] LABS: BASOPHILS # (AUTO) 0.1 10^3/uL (0.0-0.1); BASOPHILS % (AUTO) 1.2 %; EOSINOPHILS % (AUTO) 0.4 %; HCT - HEMATOCRIT 43.1 % (37.0-47.0); HGB - HEMOGLOBIN 14.7 g/dL (12.0-16.0); LYMPHOCYTES # (AUTO) 2.1 10^3/uL (1.5-3.5); LYMPHOCYTES % (AUTO) 27.5 %; MEAN CORPUSCULAR HEMOGLOBIN 31.6 pg (27.0-31.0); MEAN CORPUSCULAR HGB CONC 34.1 g/dL (32.0-36.0); MEAN CORPUSCULAR VOLUME 92.7 fL (81.0-99.0); MEAN PLATELET VOLUME 8.6 fL (7.9-10.8); MONOCYTES # (AUTO) 0.4 10^3/uL (0.0-1.0); MONOCYTES % (AUTO) 5.5 %; NEUTROPHILS % (AUTO) 65.3 %; PLT - PLATELET COUNT 388 10^3/uL (130-450); RED BLOOD COUNT 4.65 10^6/uL (4.20-5.40); RED CELL DISTRIBUTION WIDTH 13.1 % (12.0-15.0); WHITE BLOOD COUNT 7.6 x10^3/uL (4.8-10.8)
[2025-04-14 15:48] LABS: MAGNESIUM 1.9 mg/dL (1.7-2.3)
--- OUTSIDE RECORDS SUMMARY | 2025-04-14 15:51 | EXTERNAL MEDICAL SUMMARY RPT | Continuity of Care Document ---
Author Organization [place] Address [address] [place] [id number] Phone Problems date description facility 2025-01-18 11:58 Alcohol dependence, in remissio n Preact 2025-01-18 11:58 Depression, unspecified Preact 2025-01-18 11:58 Panic disorder [episodic paroxy smal anxiety] Preact 2025-01-18 11:58 Generalized anxiety disorder [facility] 2025-01-18 11:58 Post-traumatic stress disorder, unspecified Preact 2025-01-18 11:58 Binge eating disorder, moderate [facility] 2025-01-18 11:58 Insomnia due to other mental di sorder Preact 2025-01-18 11:58 Borderline personality disorder Preact 2025-01-18 11:58 Encounter for genera l adult medical examination without abnormal findings Preact 2025-01-18 11:58 Other correction (current) drug therapy Preact 2025-02-07 12:24 Depression, unspecified Preact 2025-02-07 12:24 Encounter for genera l adult medical examination without abnormal findings Preact 2025-02-07 12:24 Other long term care pharmacist (current) drug therapy Preact 2025-02-07 12:25 Depression, unspecified Preact 2025-02-07 12:25 Encounter for genera l adult medical examination without abnormal findings Preact 2025-02-07 12:25 Other correction (current) drug therapy Preact 2025-02-07 13:33 Depression, unspecified Preact 2025-02-07 13:33 Encounter for genera l adult medical examination without abnormal findings Preact 2025-02-07 13:33 Other correction (current) drug therapy Preact 2025-02-07 14:39 Insomnia, unspecified [facility] 2025-02-08 00:04 [facility], [facility] 2025-02-08 00:04 Encounter for genera l adult medical examination without abnormal findings [facility] 2025-02-08 00:04 Other long term care pharmacist (current) drug therapy [facility] 2025-02-09 09:00 Encounter for genera l adult medical examination without abnormal findings [facility] Results/Labs test date facility value unit notes Result panel 1 NUCLEATED RED BLOOD CELLS AUTO 2025-02-07 12:30 [facility] 0.0 /100wbc (missing) NRBC ABSOLUTE COUNT (AUTO) 2025-02-07 12:30 [facility] 0.00 x10 3/ul (missing) BASOPHILS # (AUTO) 2025-02-07 12:30 [facility] 0.1 10 3/ul (missing) EOSINOPHILS # (AUTO) 2025-02-07 12:30 [facility] 0.2 10 3/ul (missing) MONOCYTES # (AUTO) 2025-02-07 12:30 [facility] 0.3 10 3/ul (missing) BILIRUBIN,TOTAL 2025-02-07 12:30 [facility] 0.3 mg/dl As of May 2023 testing method has changed, this may include reference ranges. FREE T4 (FREE THYROXINE) 2025-02-07 12:30 [facility] 0.75 ng/dl Biotin at >10 ng/mL concentration may cause significant interference. CREATININE 2025-02-07 12:30 [facility] 0.9 mg/dl As of May 2023 testing method has changed, this may include reference ranges. THYROID STIMULATING HORMONE 2025-02-07 12:30 [employer] [facility] 1.05 uiu/ml (missing) TOTAL T3 2025-02-07 12:30 [facility] 1.31 ng/ml Biotin at >1 ng/mL concentration may cause significant interference. ALBUMIN/GLOBULIN RATIO 2025-02-07 12:30 [facility] 1.6 (missing) (missing) LYMPHOCYTES # (AUTO) 2025-02-07 12:30 [facility] 1.6 10 3/ul (missing) CHLORIDE 2025-02-07 12:30 [facility] 103 mmol/l As of May 2023 testing method has changed, this may include reference ranges. ALT ALANINE AMINOTRANSFERASE 2025-02-07 12:30 [facility] 11 iu/l As of May 2023 testing method has changed, this may include reference ranges. HGB - HEMOGLOBIN 2025-02-07 12:30 [facility] 13.1 g/dl (missing) SODIUM 2025-02-07 12:30 [facility] 135 mmol/l As of May 2023 testing method has changed, this may include reference ranges. AST ASPARTATE AMINOTRANSFERASE 2025-02-07 12:30 [facility] 15 iu/l As of May 2023 testing method has changed, this may include reference ranges. NEUTROPHILS # (AUTO) 2025-02-07 12:30 [facility] 2.0 10 3/ul (missing) GLOBULIN 2025-02-07 12:30 [facility] 2.7 g/dl (missing) RED CELL DISTRIBUTION WIDTH 2025-02-07 12:30 [facility] 20.7 % (missing) CARBON DIOXIDE - CO2 2025-02-07 12:30 [facility] 27 mmol/l As of May 2023 testing method has changed, this may include reference ranges. MEAN CORPUSCULAR HEMOGLOBIN 2025-02-07 12:30 [facility] 27.9 pg (missing) PLT - PLATELET COUNT 2025-02-07 12:30 [facility] 295 10 3/ul (missing) RBC MORPHOLOGY (MULTIPLE) 2025-02-07 12:30 [facility] 3+ ANISOCYTOSIS (missing) (missing) FREE T3 2025-02-07 12:30 [facility] 3.08 pg/ml Biotin at >10 ng/mL concentration may cause significant interference. MEAN CORPUSCULAR HGB CONC 2025-02-07 12:30 [facility] 30.7 g/dl (missing) ALBUMIN 2025-02-07 12:30 [facility] 4.2 g/dl As of May 2023 testing method has changed, this may include reference ranges. POTASSIUM 2025-02-07 12:30 [facility] 4.2 mmol/l As of May 2023 testing method has changed, this may include reference ranges. WHITE BLOOD COUNT 2025-02-07 12:30 [facility] 4.2 x10 3/ul (missing) PROLACTIN 2025-02-07 12:30 [facility] 4.58 ng/ml Social History date description facility
[2025-04-14 15:55] LABS: ETOH - ETHANOL 224.5 mg/dL
[2025-04-14 15:57] LABS: HCG,QUALITATIVE BLOOD NEGATIVE
[2025-04-14 15:59] LABS: ALBUMIN 4.4 g/dL (3.2-5.5); ALBUMIN/GLOBULIN RATIO 1.8 (1.0-2.2); BILIRUBIN,TOTAL 0.5 mg/dL (0.2-1.0); CALCIUM 8.4 mg/dL (8.5-10.3); CREATININE 0.8 mg/dL (0.6-1.3); POTASSIUM 3.7 mmol/L (3.5-4.5); TOTAL PROTEIN 6.9 g/dL (6.4-8.9)
[2025-04-14] MEDS ORDERED: iohexoL-300 100 ML VIAL ONE (16:05)
[2025-04-14] MEDS: iohexoL-300 100 ML VIAL IVP ONE (16:31)
--- NOTE | 2025-04-14 16:50 | CT Report ---
PROCEDURE: CT Abdomen/Pelvis W INDICATIONS: upper abd pain and vomiting 4 days. CONTRAST: 100 ML OMNI TECHNIQUE: After the administration of intravenous contrast, a CT scan of the abdomen and pelvis was performed. Images were recorded and evaluated at appropriate window settings. Reformats: coronal and sagittal. For radiation dose reduction, the following was used: automated exposure control, adjustment of mA and/or kV according to patient size. COMPARISON: None. FINDINGS: Image quality: Diagnostic. Lower chest: Small hiatal hernia. Wall thickening of the lower esophagus. Liver: Hepatic steatosis. Smooth liver contour. Patent portal vein. Gallbladder: No radiopaque stones or wall thickening. Biliary tree: No intrahepatic or extrahepatic dilation, accounting for age. Spleen: No splenomegaly. Pancreas: No pancreatic ductal dilation. Adrenals: No adrenal nodule. Kidneys and ureters: No hydronephrosis. No renal cystic lesion which requires follow up. No solid mass. Stomach, bowel and peritoneum: Gastric wall thickening with mild wall stratification. Gastric rugae are prominent. Lymph nodes: No central or retroperitoneal adenopathy. Vessels: No infrarenal aortic aneurysm. Patent portal vein. PELVIS Reproductive organs: Unremarkable. Bladder: No abnormal wall thickening. Pelvic lymph nodes: No pelvic adenopathy by size criteria. Bones: No aggressive osseous abnormality. Other: No significant ventral or inguinal hernia. IMPRESSION: Suspected gastritis and esophagitis, with gastroesophageal wall thickening and wall stratification. Reviewed by: Vikas Bejarano MD on 04/14/2025 4:48 PM PDT Approved by: Vikas Bejarano MD on 04/14/2025 4:48 PM PDT Station ID: [id number]
[2025-04-14 16:52] LABS: BILIRUBIN,URINE NEGATIVE (NEGATIVE); GLUCOSE, URINE (UA) NEGATIVE (NEGATIVE); KETONES,URINE (UA) 40 mg/dL (NEGATIVE); LEUKOCYTE ESTERASE, URINE TRACE (NEGATIVE); NITRITE,URINE NEGATIVE (NEGATIVE); OCCULT BLOOD,URINE TRACE-LYSE (NEGATIVE); PROTEIN,URINE TRACE mg/dL (NEGATIVE); UROBILINOGEN,URINE 0.2 (NORMAL) E.U./dL (NORMAL)
[2025-04-14 16:53] LABS: CLARITY,URINE CLEAR (CLEAR)
[2025-04-14 16:59] LABS: BUPRENORPHINE SCREEN, URINE NEGATIVE (NEGATIVE); COCAINE SCREEN URINE NEGATIVE (NEGATIVE); MDMA SCREEN, URINE NEGATIVE (NEGATIVE); METHAMPHETAMINES SCREEN, URINE NEGATIVE (NEGATIVE); MORPHINE SCREEN, URINE NEGATIVE (NEGATIVE); UDS CUTOFF CONCENTRATIONS CUTOFF CONC BELOW:
[2025-04-14 17:00] LABS: METHADONE SCREEN, URINE NEGATIVE (NEGATIVE); OXYCODONE SCREEN, URINE NEGATIVE (NEGATIVE)
[2025-04-14 17:19] LABS: BACTERIA,URINE Rare /HPF (None Seen); RBC,URINE None Seen /HPF (0-5); SQUAMOUS EPITHELIAL CELL,UR FEW Squamous (<= Few)
[2025-04-14] MEDS: PROCHLORPERAZINE 10 MG/2 ML VIAL IVP STA (18:27)
[2025-04-14] MEDS: ONDANSETRON ODT 4 MG Prepack 2 TL PRN (19:47)
[2025-04-14] MEDS: ONDANSETRON 4 MG/2 ML VIAL IVP STA ×2 (19:52→21:44)
--- NOTE | 2025-04-14 20:55 | ED Physician Documentation ---
ED Addendum Addendum Addendum: I received signout/turnover of care of this patient from Dr. Barnett; please see his note for complete H&P. On my evaluation, the patient is resting comfortably and in NAD. However, the patient says she feels no better than when she first came to the emergency department over 5 hours ago. She says she continues to have severe nausea to the point of not being tolerate even sips of liquids that have been provided in the ED. This is despite having received multiple doses of several different anti-nausea medications. At this point, the patient is agreeable to admission for ongoing IV fluids and anti-nausea medications. I discussed this case with [facility] hospitalist who will admit to [facility] Discharge Plan Discharge Condition: Stable Clinical Impression: Intractable vomiting with nausea, Acute alcoholic gastritis, Alcohol intoxication Prescriptions: New famotidine 20 mg tablet 20 mg PO DAILY Qty: 30 0RF ondansetron 4 mg tablet,disintegrating 4 mg PO QID PRN (Reason: nausea and vomiting) Qty: 14 0RF prochlorperazine [Compazine] 25 mg suppository 25 mg PA TID PRN (Reason: nausea and vomiting) Qty: 6 0RF lorazepam [Ativan] 1 mg tablet 1 mg PO TID PRN (Reason: alcohol withdrawal) Qty: 14 0RF prochlorperazine maleate [Compazine] 10 mg tablet 10 mg PO TID PRN (Reason: nausea and vomiting) Qty: 20 0RF No Action ondansetron 8 mg tablet,disintegrating See Rx Instructions .ROUTE .COMPLEX Qty: 20 5RF Dose Instruction: dissolve 1 tablet on top of the tongue every 6 to 8 hours if needed for nausea Rx Instructions: dissolve 1 tablet on top of the tongue every 6 to 8 hours if needed for nausea suvorexant 10 mg tablet 10 mg PO HS Qty: 30 2RF Rx Instructions: Take 1 tablet within 30 mins of bedtime. Only take when time permits 7+ hours sleep (do not take in the middle of night). Avoid taking with food for faster time to onset. sumatriptan succinate 100 mg tablet See Rx Instructions PO .COMPLEX Rx Instructions: take 1 tab at onset of headache; if no relief, may repeat 1 tab after at least 2 hrs; max = 2 tabs/24 hrs PO ferrous fumarate 324 mg (106 mg iron) tablet 324 mg PO QDAY Qty: 30 0RF semaglutide (weight loss) 0.25 mg/0.5 mL pen injector 1 mg subcut QWEEK Rx Instructions: increases on monthly basis bupropion HCl 300 mg tablet extended release 24 hr 300 mg PO QAM Qty: 30 2RF lurasidone 60 mg tablet 60 mg PO DAILY Qty: 30 2RF Fetzima 120 mg capsule,extended release 24 hr 120 mg PO QDAY Qty: 30 11RF Activity Restrictions/Additional Instructions: Your CT scan did show inflammation of the stomach lining consistent with gastritis it would account for the persistent feeling of nausea and dry heaving and inability to keep food or fluids down. Common irritant causes can be alcohol. Try to avoid alcohol ingestion and any other irritants of the stomach such as caffeine and spicy foods at least in the short-term for your stomach to heal better. If your regular alcohol drinker then you may develop some withdrawal type symptoms if you are not having the alcohol. I am prescribing some lorazepam to take every 4-6 hours if needed for withdrawal symptoms should that would develop. Otherwise he want to reduce the stomach acids to allow better healing in the stomach lining. Famotidine 20 mg daily for a month. In the short-term for nausea you can use ondansetron every 4-6 hours or Compazine instead. I also prescribed Compazine suppositories to take if the oral medicine is not sufficient. Follow-up with your primary care for subsequent care and treatment. Recheck if not well resolved over the next 2 to 3 days and return to the ER if persistent vomiting again. I sent your prescriptions to the [facility] in [place]. Print Language: Zambian Patient Instructions: ED Gastritis, ED Nausea Vomiting Stand Alone Forms: PCP List Follow-up Care: Gloria Brown ARNP [Primary Care Provider] -
--- NOTE | 2025-04-14 21:30 | HISTORY & PHYSICAL EXAMINATION ---
Chief Complaint Chief Complaint Chief Complaint: Nausea and vomiting History of Present Illness History Obtained From History obtained from: Patient interview, chart review History of Present Illness HPI Comment/Other: 34-year-old female PMH significant for alcohol use disorder, ovarian cyst, gastritis who presents to the ER with 4 days of nausea and vomiting. She reports drinking a liter of vodka a day and regularly using marijuana. She has been able to drink alcohol but not keep any food down. Denies hematemesis. Now has cramping upper abdominal pain. In the ER, CT abdomen/pelvis was performed which showed suspected gastritis/esophagitis with GE wall thickening. She was trialed on multiple antiemetics including droperidol, ondansetron per EMS, Compazine, Pepcid and is still unable to keep any food or drink down. Hospitalist was contacted for observation for intractable nausea and vomiting secondary to alcoholic gastritis Meds/Allgy Home Medications Ambulatory Orders Medication Instructions Recorded Confirmed levomilnacipran 120 mg capsule,24 120 mg PO QDAY #30 c aps 10/15/24 02/07/25 hr,extended release (Fetzima) sumatriptan succinate 100 mg tablet See Rx Instruction s PO .COMPLEX 11/12/24 02/07/25 ondansetron 8 mg disintegrating See Rx Instructions .R oute 12/03/24 02/07/25 tablet .COMPLEX #20 tabs ferrous fumarate 324 mg (106 mg 324 mg PO QDAY #30 tab s 01/07/25 02/07/25 iron) tablet suvorexant 10 mg tablet 10 mg PO HS #30 tabs 5 bupropion HCl 300 mg 24 hr tablet, 300 mg PO QAM #30 t abs 03/17/25 03/17/25 extended release lurasidone 60 mg tablet 60 mg PO DAILY #30 tabs 02/2303/17/25 semaglutide (weight loss) 0.25 1 mg subcut QWEEK 03/1703/17/25 mg/0.5 mL subcutaneous pen injector famotidine 20 mg tablet 20 mg PO DAILY #30 tabs 03/25 01/18 lorazepam 1 mg tablet (Ativan) 1 mg PO TID PRN alcohol withdrawal 04/14/25 #14 tabs ondansetron 4 mg disintegrating 4 mg PO QID PRN nausea and 04/14/25 tablet vomiting #14 tabs prochlorperazine 25 mg rectal 25 mg DC TID PRN nausea and 04/14/25 suppository (Compazine) vomiting #6 ea prochlorperazine maleate 10 mg 10 mg PO TID PRN nausea and 04/14/25 tablet (Compazine) vomiting #20 tabs Allergies Allergies Allergy/AdvReac Type Severity Reaction Status Date / Time lamotrigine Allergy Anaphylaxis Verified 04/14/25 15:20 PFS Active Problems All Active Problems (Updated 04/14/25 @ 19:10 by Yrn Barnett MD) Alcohol intoxication (Acute) Acute alcoholic gastritis (Acute) Intractable vomiting with nausea (Acute) 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 (Acute) Alcohol use education declined (Acute) Medication reaction (Acute) Leg cramping (Acute) Dizziness on standing (Acute) Alcohol use disorder, severe, in early remission (Acute) Insomnia (Acute) Encounter for long-term current use of medication (Acute) Complex posttraumatic stress disorder (Acute) Attention deficit hyperactivity disorder (Acute) Binge eating disorder, moderate (Acute) Generalized anxiety disorder with panic attacks (Acute) Mood disorder of depressed type (Acute) Insomnia due to mental disorder (Acute) Borderline personality disorder (Acute) Medical History Medical History Alcohol use disorder, severe, dependence Alcohol use disorder Abdominal pain Ovarian mass, right Urinary (tract) obstruction Hydronephrosis Urinary retention Ovarian cyst Gastritis History of suicidal behavior Alcohol abuse Social History Social History (Updated 11/19/24 @ 14:22 by Katelynn Fitzgerald RN) Smoking Status: Never smoker Do you vape?: No Living arrangement: At home Relationship: Do you feel safe in your home environment?: Yes Suffered physical, verbal, emotional, or financial abuse?: No History of Abuse: No ETOH Use: Frequency: Daily Substance Use: denies use Are you sexually active?: No POLST Patient has POLST: No Review of Systems Status of ROS: 10 or more systems reviewed and unremarkable except as noted in history and below Constitutional Denies: Fever or Chills Cardiovascular Denies: Irregular heart rate, chest pain or shortness of breath with exertion Respiratory Denies: Shortness of breath Gastrointestinal Reports: Abdominal pain, Nausea, Vomiting and Poor appetite Neurological Reports: General weakness Exam Exam Vital Signs: Vital Signs x48h Temp Pulse Resp BP Pulse Ox 04/14/25 20:22 95 16 120/81 96 04/14/25 18:50 109 H 18 113/78 98 04/14/25 15:16 36.6 C 114 H 24 124/87 99 Constitutional normal general appearance and no apparent distress HENMT normocephalic and head/scalp atraumatic Eyes PERRL Neck/C-Spine visual inspection normal Lymph no lymphadenopathy noted Chest inspection of chest normal Respiratory breath sounds equal bilaterally and normal respiratory effort Cardiovascular heart rate abnormal (tachycardic) Gastrointestinal abdomen normal to inspection and tender to palpation (epigastric) Extremities normal to inspection and normal to palpation Neurology GCS 15 Psychiatry oriented x3 and psychomotor abnormality noted (restless) Skin skin color normal Conclusion/Plan Problem List (1) Intractable vomiting with nausea: Plan: ER attempted management with multiple doses of droperidol as well as Compazine, Pepcid, and a dose of Zofran per EMS Ordered Zofran, Compazine Management of alcoholic gastritis as below Possible component of marijuana induced nausea and vomiting. Already received droperidol in the ER. Added capsaicin cream (2) Acute alcoholic gastritis: Plan: Pepcid and Protonix twice daily IV Maalox as needed Alcohol cessation counseling (3) Alcohol use disorder, severe, dependence: Plan: Drinks a liter of vodka every day CIWA protocol with as needed Ativan Librium 25 mg 4 times daily Plan Placed in observation Full code She names her friend Bora as her surrogate decision-maker Lab Results Lab results reviewed: Yes 04/14/25 15:29 04/14/25 15:29 Diagnostic Imaging Results Diagnostic Imaging Results: positive Final report reviewed Core Measures Anticipated LOS I expect patient to be DC'd or transferred within 96 hours.: Yes DVT/VTE - Prophylaxis VTE/DVT Prophylaxis med ordered at admit?: Yes
[2025-04-14] MEDS: LORazepam 2 MG/ML VIAL IVP STA (21:45)
[2025-04-14] MEDS ORDERED: SODIUM CHLORIDE FLUSH 0.9% 10 ML SYRINGE IVP PRN (22:06)
[2025-04-14] MEDS ORDERED: LORazepam 1 MG TABLET PO PRN (22:06)
[2025-04-14] MEDS: THIAMINE INJ 100 MG in SODIUM CHLORIDE 0.9% 50 ML IV STA (22:26)
[2025-04-14] MEDS: LACTATED RINGERS 1,000 ML IV SCH (22:29)
[2025-04-14] MEDS: CAPSAICIN 0.025% CREAM 60 GM TUBE TOP SCH (22:46)
[2025-04-14] MEDS: PANTOPRAZOLE 40 MG VIAL IVP SCH (22:51)
[2025-04-14] MEDS: LORazepam 2 MG/ML VIAL IVP PRN (22:52)
[2025-04-15] MEDS: PROCHLORPERAZINE 10 MG/2 ML VIAL IVP PRN (00:14)
[2025-04-15] MEDS: SODIUM CHLORIDE FLUSH 0.9% 10 ML SYRINGE IVP SCH (00:15)
[2025-04-15] MEDS: chlordiazePOXIDE 25 MG CAPSULE PO SCH (00:15)
[2025-04-15] MEDS: MORPHINE 2 MG/ML CARPUJECT IVP PRN (00:17)
[2025-04-15] MEDS: ONDANSETRON 4 MG/2 ML VIAL IVP PRN (05:35)
[2025-04-15] MEDS: ACETAMINOPHEN 1,000 MG/100 ML 1,000 MG/100 ML BAG IV PRN (05:53)
[2025-04-15 05:55] LABS: BASOPHILS # (AUTO) 0.1 10^3/uL (0.0-0.1); BASOPHILS % (AUTO) 0.7 %; EOSINOPHILS # (AUTO) 0.2 10^3/uL (0.0-0.7); EOSINOPHILS % (AUTO) 2.7 %; HCT - HEMATOCRIT 39.7 % (37.0-47.0); HGB - HEMOGLOBIN 13.4 g/dL (12.0-16.0); LYMPHOCYTES # (AUTO) 1.6 10^3/uL (1.5-3.5); MEAN CORPUSCULAR HEMOGLOBIN 31.2 pg (27.0-31.0); MEAN CORPUSCULAR HGB CONC 33.8 g/dL (32.0-36.0); MEAN CORPUSCULAR VOLUME 92.5 fL (81.0-99.0); MEAN PLATELET VOLUME 9.8 fL (7.9-10.8); MONOCYTES # (AUTO) 0.6 10^3/uL (0.0-1.0); MONOCYTES % (AUTO) 9.6 %; NEUTROPHILS # (AUTO) 4.2 10^3/uL (1.5-6.6); NEUTROPHILS % (AUTO) 62.7 %; PLT - PLATELET COUNT 299 10^3/uL (130-450); RED BLOOD COUNT 4.29 10^6/uL (4.20-5.40); RED CELL DISTRIBUTION WIDTH 13.2 % (12.0-15.0); WHITE BLOOD COUNT 6.7 x10^3/uL (4.8-10.8)
[2025-04-15 06:17] LABS: CALCIUM 8.5 mg/dL (8.5-10.3); CREATININE 0.7 mg/dL (0.6-1.3); POTASSIUM 4.2 mmol/L (3.5-4.5)
[2025-04-15] MEDS: FAMOTIDINE 20 MG/2 ML VIAL IVP SCH (08:56)
[2025-04-15] MEDS: THIAMINE 100 MG TABLET PO SCH (08:56)
[2025-04-15] MEDS: PRENATAL VITAMIN TABLET PO SCH (08:56)
[2025-04-15] MEDS: ENOXAPARIN 40 MG/0.4 ML SYRINGE SUBQ SCH (08:57)
[2025-04-15] MEDS ORDERED: ONDANSETRON ODT 4 MG TABLET TL PRN (09:55)
--- NOTE | 2025-04-15 10:07 | PHARMACY PROGRESS NOTE ---
Best Possible Medication History Admit Date and Time: 04/14/252049 Home Medications Medication Instructions Recorded Confirmed Type levomilnacipran 120 mg capsule,24 120 mg PO QDAY #30 c aps 10/15/24 04/15/25 Rx hr,extended release (Fetzima) sumatriptan succinate 100 mg tablet See Rx Instruction s PO .COMPLEX 11/12/24 04/15/25 History ferrous fumarate 324 mg (106 mg 324 mg PO QDAY #30 tab s 01/07/25 04/15/25 Rx iron) tablet suvorexant 10 mg tablet 10 mg PO HS #30 tabs 5 Rx bupropion HCl 300 mg 24 hr tablet, 300 mg PO QAM #30 t abs 03/17/25 04/15/25 Rx extended release lurasidone 60 mg tablet 60 mg PO DAILY #30 tabs 02/2304/15/25 Rx semaglutide (weight loss) 0.25 1 mg subcut QWEEK 03/1704/15/25 History mg/0.5 mL subcutaneous pen injector famotidine 20 mg tablet 20 mg PO DAILY #30 tabs 03/25 01/18 Rx lorazepam 1 mg tablet (Ativan) 1 mg PO TID PRN alcohol withdrawal 04/14/25 Rx #14 tabs ondansetron 4 mg disintegrating 4 mg PO QID PRN nausea and 04/14/25 Rx tablet vomiting #14 tabs prochlorperazine 25 mg rectal 25 mg AL TID PRN nausea and 04/14/25 Rx suppository (Compazine) vomiting #6 ea prochlorperazine maleate 10 mg 10 mg PO TID PRN nausea and 04/14/25 Rx tablet (Compazine) vomiting #20 tabs norethindrone-eth. estradiol-iron 1 tab PO DAILY 04/1504/15/25 History 1-20 (5)/1-30(7)/1mg-35mcg(9) tablet (Tri-Legest Fe) ondansetron 8 mg disintegrating 8 mg PO .q6-8 PRN naus ea and 04/15/25 04/15/25 History tablet vomiting Processed by: Pharmacy Medications reviewed in ED?: No Medication History completed: Yes Patient Interview: Completed Secondary Source(s): Pharmacy records and Insurance records [facility] Statement: As the person ultimately responsible for medication therapy, providers are able to order a medication from an existing home medication list in [facility] via the "Reconcile Routine" prior to Confirmation of that medication by manager client support. Such practice is discouraged except when the physician, in their clinical judgment, deems that a medical need exists for a medication without regard to previous use.
[2025-04-15] MEDS ORDERED: MAG HYDROX/AL HYDROX/SIMETH 30 ML UDC PO PRN (11:02)
[2025-04-15] MEDS: chlordiazePOXIDE 5 MG CAPSULE PO SCH (12:00)
--- NOTE | 2025-04-15 14:05 | PROVIDER PROGRESS NOTE ---
Subjective Prog Note Date Prog Note Date: 04/15/25 Prog Note Time: 14:06 Subjective Pt reports feeling: Improved Subjective: Patient is asleep upon entering the room, arousable after 4 attempts and somnelent when taking history. Patient reports nausea has improved and expresses strong desire to go home. She reports some vomiting but states this was forced to relieve previous nausea. States she was able to eat a couple bites of breakfast this morning. Patient admits to history of AUD, in remission until 3 days ago. Admits to 3L of vodka over the last 3 days. Also admits to daily marijuana use. Current Medications Current Medications Current Medications: Current Medications Generic Name Dose Route Start Last Admin Trade Name Freq PRN Reason Stop Dose Admin Al Hydroxide/Mg Hydroxide 30 ml 04/15/25 11:02 Mag Hydrox/Al Hydrox/Simeth 30 Ml Udc PO Q4HR PRN INDIGESTION Capsaicin 1 applic 04/14/25 22:06 04/15/25 13:03 Capsaicin 0.025% Cream 60 Gm Tube TOP Not Given QID CECLIIA Enoxaparin Sodium 40 mg 04/15/25 09:00 04/15/25 08:57 Enoxaparin 40 Mg/0.4 Ml Syringe SUBQ 40 mg DAILY CECILIA Administration Famotidine 20 mg 04/15/25 09:00 04/15/25 08:56 Famotidine 20 Mg/2 Ml Vial IVP 20 mg BID CECILIA Administration Acetaminophen 1,000 mg in 100 mls @ 400 mls/hr 04/15/25 05:40 04/15/25 06:36 Acetaminophen IV Infused Q6HR PRN Infusion FEVER > 100.5 F Lorazepam 1 mg 04/14/25 22:06 Lorazepam 1 Mg Tablet PO Q1H PRN CIWA > 8 Protocol Lorazepam 2 mg 04/14/25 22:08 04/15/25 09:43 Lorazepam 2 Mg/Ml Vial IVP 2 mg Q30M PRN Administration CIWA >8 Protocol Ondansetron HCl 4 mg 04/14/25 22:06 04/15/25 05:35 Ondansetron 4 Mg/2 Ml Vial IVP 4 mg Q6HR PRN Administration Nausea / Vomiting Ondansetron HCl 4 mg 04/15/25 09:55 Ondansetron Odt 4 Mg Tablet TL Q6HR PRN Nausea / Vomiting Pantoprazole Sodium 40 mg 05/22/25 22:06 04/15/25 08:56 Pantoprazole 40 Mg Vial IVP 40 mg BID CECILIA Administration Multivit/Folic Acid/Iron 1 tab 04/15/25 09:00 04/15/25 08:56 Vitamin Tablet PO 1 tab DAILY CECILIA Administration Prochlorperazine Edisylate 10 mg 04/14/25 22:06 04/15/25 00:14 Prochlorperazine 10 Mg/2 Ml Vial IVP 10 mg Q6HR PRN Administration Nausea / Vomiting Sodium Chloride 10 ml 04/14/25 22:06 Sodium Chloride Flush 0.9% 10 Ml Syringe IVP PRN PRN NEEDED PER PROVIDER ORDERS Sodium Chloride 10 ml 04/15/25 01:00 04/15/25 08:57 Sodium Chloride Flush 0.9% 10 Ml Syringe IVP 10 ml 0100,0900,1700 CECILIA Administration Thiamine HCl 100 mg 04/15/25 09:00 04/15/25 08:56 Thiamine 100 Mg Tablet PO 100 mg DAILY CECILIA Administration Objective Vital Signs/Intake & Output Reviewed Vital Signs: Yes Vital Signs: Vital Signs x48h Temp Pulse Resp BP Pulse Ox 04/15/25 12:00 37.0 C 139 H 16 103/64 97 04/15/25 08:16 36.7 C 104 H 18 109/79 99 Intake & Output: Intake & Output 04/12/25 04/13/25 04/14/25 04/15/25 23:59 23:59 23:59 23:59 Intake Total 2050 1420 / 1420 Balance 2050 1420 / 1420 Weight (kg) 55 kg Objective Eyes Bilateral: positive Normal inspection, PERRL and No scleral icterus ENT: positive ENT inspection nml Neck: positive Nml inspection Respiratory: positive Chest non-tender, No respiratory distress and Breath sounds nml Cardiovascular: positive No murmur, No gallop and Tachycardia Abdomen: positive Nml bowel sounds, No distention, Tenderness (TTP LUQ and epigastric region ) and Rebound; negative Hepatomegaly or Splenomegaly Skin: positive Color nml Extremities: positive No pedal edema Neurologic/Psychiatric: positive Oriented x3, CN's nml (2-12), Sensation nml, Slurred/abnml speech and Other (Somnolent and drowsy; actively falling asleep during history taking ) Lab Results 04/15/25 05:04 04/15/25 05:04 Other Labs: Lab Results x24hrs 04/15/25 04/14/25 04/14/25 Range/Units 05:04 16:44 16:44 WBC 6.7 (4.8-10.8) x10^3/uL RBC 4.29 (4.20-5.40) 10^6/uL Hgb 13.4 (12.0-16.0) g/dL Hct 39.7 (37.0-47.0) % MCV 92.5 (81.0-99.0) fL MCH 31.2 H (27.0-31.0) pg MCHC 33.8 (32.0-36.0) g/dL RDW 13.2 (12.0-15.0) % Plt Count 299 (130-450) 10^3/uL MPV 9.8 (7.9-10.8) fL Neut # (Auto) 4.2 (1.5-6.6) 10^3/uL Lymph # (Auto) 1.6 (1.5-3.5) 10^3/uL [place] # (Auto) 0.6 (0.0-1.0) 10^3/uL Eos # (Auto) 0.2 (0.0-0.7) 10^3/uL Baso # (Auto) 0.1 (0.0-0.1) 10^3/uL Absolute Nucleated RBC 0.00 x10^3/uL Nucleated RBC % 0.0 /100WBC Sodium 137 (135-145) mmol/L Potassium 4.2 (3.5-4.5) mmol/L Chloride 105 (101-111) mmol/L Carbon Dioxide 15 L (21-32) mmol/L Anion Gap 17.0 H (6-13) BUN 9 (6-20) mg/dL Creatinine 0.7 (0.6-1.3) mg/dL Estimated GFR (MDRD) 95 (>89) Glucose 77 (74-104) mg/dL Calcium 8.5 (8.5-10.3) mg/dL Magnesium (1.7-2.3) mg/dL Total Bilirubin (0.2-1.0) mg/dL AST (10-42) IU/L ALT (10-60) IU/L Alkaline Phosphatase (42-121) IU/L Total Protein (6.4-8.9) g/dL Albumin (3.2-5.5) g/dL Globulin (2.1-4.2) g/dL Albumin/Globulin Ratio (1.0-2.2) Lipase (11-82) U/L Serum HCG, Qual Urine Color LIGHT YELLOW Urine Clarity CLEAR (CLEAR) Urine pH 6.0 (5.0-7.5) PH Ur Specific [place] 1.025 (1.002-1.030) Urine Protein TRACE (NEGATIVE) mg/dL Urine Glucose (UA) NEGATIVE (NEGATIVE) mg/dL Urine Ketones 40 H (NEGATIVE) mg/dL Urine Occult Blood TRACE-LYSE (NEGATIVE) Urine Nitrite NEGATIVE (NEGATIVE) Urine Bilirubin NEGATIVE (NEGATIVE) Urine Urobilinogen 0.2 (NORMAL) (NORMAL) E.U./dL Ur Leukocyte Esterase TRACE H (NEGATIVE) Urine RBC None Seen (0-5) /HPF Urine WBC 6-10 H (0-5) /HPF Ur Epithelial Cells FEW Transitional FEW Renal Tubular (<= Few) /HPF Ur Squamous Epith Cells FEW Squamous (<= Few) Urine Bacteria Rare (None Seen) /HPF Ur Microscopic Review INDICATED Urine Culture Comments INDICATED Ur Buprenorphine Scrn NEGATIVE (NEGATIVE) Ur Morphine Screen NEGATIVE (NEGATIVE) Ur Oxycodone Screen NEGATIVE (NEGATIVE) Urine Methadone Screen NEGATIVE (NEGATIVE) Ur Barbiturates Screen NEGATIVE (NEGATIVE) Ur Phencyclidine Scrn NEGATIVE (NEGATIVE) Ur Amphetamine Screen NEGATIVE (NEGATIVE) U Methamphetamines Scrn NEGATIVE (NEGATIVE) Urine MDMA Screen NEGATIVE (NEGATIVE) U Benzodiazepines Scrn NEGATIVE (NEGATIVE) Urine Cocaine Screen NEGATIVE (NEGATIVE) U Cannabinoids Screen POSITIVE H (NEGATIVE) Ur Drug Screen Comment CUTOFF CONC BELOW: Ethyl Alcohol mg/dL 04/14/25 Range/Units 15:29 WBC 7.6 (4.8-10.8) x10^3/uL RBC 4.65 (4.20-5.40) 10^6/uL Hgb 14.7 (12.0-16.0) g/dL Hct 43.1 (37.0-47.0) % MCV 92.7 (81.0-99.0) fL MCH 31.6 H (27.0-31.0) pg MCHC 34.1 (32.0-36.0) g/dL RDW 13.1 (12.0-15.0) % Plt Count 388 (130-450) 10^3/uL MPV 8.6 (7.9-10.8) fL Neut # (Auto) 5.0 (1.5-6.6) 10^3/uL Lymph # (Auto) 2.1 (1.5-3.5) 10^3/uL [place] # (Auto) 0.4 (0.0-1.0) 10^3/uL Eos # (Auto) 0.0 (0.0-0.7) 10^3/uL Baso # (Auto) 0.1 (0.0-0.1) 10^3/uL Absolute Nucleated RBC 0.00 x10^3/uL Nucleated RBC % 0.0 /100WBC Sodium 142 (135-145) mmol/L Potassium 3.7 (3.5-4.5) mmol/L Chloride 102 (101-111) mmol/L Carbon Dioxide 20 L (21-32) mmol/L Anion Gap 20.0 H (6-13) BUN 15 (6-20) mg/dL Creatinine 0.8 (0.6-1.3) mg/dL Estimated GFR (MDRD) 82 L (>89) Glucose 80 (74-104) mg/dL Calcium 8.4 L (8.5-10.3) mg/dL Magnesium 1.9 (1.7-2.3) mg/dL Total Bilirubin 0.5 (0.2-1.0) mg/dL AST 28 (10-42) IU/L ALT 32 (10-60) IU/L Alkaline Phosphatase 60 (42-121) IU/L Total Protein 6.9 (6.4-8.9) g/dL Albumin 4.4 (3.2-5.5) g/dL Globulin 2.5 (2.1-4.2) g/dL Albumin/Globulin Ratio 1.8 (1.0-2.2) Lipase 38 (11-82) U/L Serum HCG, Qual NEGATIVE Urine Color Urine Clarity (CLEAR) Urine pH (5.0-7.5) PH Ur Specific [place] (1.002-1.030) Urine Protein (NEGATIVE) mg/dL Urine Glucose (UA) (NEGATIVE) mg/dL Urine Ketones (NEGATIVE) mg/dL Urine Occult Blood (NEGATIVE) Urine Nitrite (NEGATIVE) Urine Bilirubin (NEGATIVE) Urine Urobilinogen (NORMAL) E.U./dL Ur Leukocyte Esterase (NEGATIVE) Urine RBC (0-5) /HPF Urine WBC (0-5) /HPF Ur Epithelial Cells (<= Few) /HPF Ur Squamous Epith Cells (<= Few) Urine Bacteria (None Seen) /HPF Ur Microscopic Review Urine Culture Comments Ur Buprenorphine Scrn (NEGATIVE) Ur Morphine Screen (NEGATIVE) Ur Oxycodone Screen (NEGATIVE) Urine Methadone Screen (NEGATIVE) Ur Barbiturates Screen (NEGATIVE) Ur Phencyclidine Scrn (NEGATIVE) Ur Amphetamine Screen (NEGATIVE) U Methamphetamines Scrn (NEGATIVE) Urine MDMA Screen (NEGATIVE) U Benzodiazepines Scrn (NEGATIVE) Urine Cocaine Screen (NEGATIVE) U Cannabinoids Screen (NEGATIVE) Ur Drug Screen Comment Ethyl Alcohol 224.5 mg/dL Diagnostic Imaging Diagnostic Imaging Results: positive Final report reviewed Diagnostic Imaging Comments: EXAM: [id number] CT/ABPEW ([id number]) PROCEDURE: CT Abdomen/Pelvis W INDICATIONS: upper abd pain and vomiting 4 days. CONTRAST: 100 ML OMNI TECHNIQUE: After the administration of intravenous contrast, a CT scan of the abdomen and pelvis was performed. Images were recorded and evaluated at appropriate window settings. Reformats: coronal and sagittal. For radiation dose reduction, the following was used: automated exposure control, adjustment of mA and/or kV according to patient size. COMPARISON: None. FINDINGS: Image quality: Diagnostic. Lower chest: Small hiatal hernia. Wall thickening of the lower esophagus. Liver: Hepatic steatosis. Smooth liver contour. Patent portal vein. Gallbladder: No radiopaque stones or wall thickening. Biliary tree: No intrahepatic or extrahepatic dilation, accounting for age. Spleen: No splenomegaly. Pancreas: No pancreatic ductal dilation. Adrenals: No adrenal nodule. Kidneys and ureters: No hydronephrosis. No renal cystic lesion which requires follow up. No solid mass. Stomach, bowel and peritoneum: Gastric wall thickening with mild wall stratification. Gastric rugae are prominent. Lymph nodes: No central or retroperitoneal adenopathy. Vessels: No infrarenal aortic aneurysm. Patent portal vein. PELVIS Reproductive organs: Unremarkable. Bladder: No abnormal wall thickening. Pelvic lymph nodes: No pelvic adenopathy by size criteria. Bones: No aggressive osseous abnormality. Other: No significant ventral or inguinal hernia. IMPRESSION: Suspected gastritis and esophagitis, with gastroesophageal wall thickening and wall stratification. Reviewed by: Vikas Bejarano MD on 04/14/2025 4:48 PM PDT Approved by: Vikas Bejarano MD on 04/14/2025 4:48 PM PDT Assessment/Plan Problem List (1) Intractable vomiting with nausea: (2) Acute alcoholic gastritis:
[2025-04-15 16:11] VITALS: BP 118/83; TEMP 97.9; O2SAT 98
--- NOTE | 2025-04-15 16:14 | Discharge Summary ---
Discharge Summary Admit Date: 04/14/25 Discharge Date: 04/15/25 Discharging Provider: Joey Henderson NP Primary Care Provider: Gloria Brown Code Status: Attempt Resuscitation DIAGNOSES Admission Diagnoses: Intractable vomiting with nausea Acute alcoholic gastritis Alcohol use disorder, severe, dependence Discharge Diagnoses with Status of Each Condition: Intractable vomiting with nausearesolved Acute alcoholic gastritisimproving, able to tolerate p.o. Alcohol use disorder, severe, dependence. Had been sober until 3 days ago. Does not plan to stop drinking HPI History of Present Illness: 34-year-old female PMH significant for alcohol use disorder, ovarian cyst, gastritis who presents to the ER with 4 days of nausea and vomiting. She reports drinking a liter of vodka a day and regularly using marijuana. She has been able to drink alcohol but not keep any food down. Denies hematemesis. Now has cramping upper abdominal pain. In the ER, CT abdomen/pelvis was performed which showed suspected gastritis/esophagitis with GE wall thickening. She was trialed on multiple antiemetics including droperidol, ondansetron per EMS, Compazine, Pepcid and is still unable to keep any food or drink down. Hospitalist was contacted for observation for intractable nausea and vomiting secondary to alcoholic gastritis HOSPITAL COURSE Hospital Course: Patient was held overnight and started on PPI and H2 dalia IV. She received several doses of antiemetic. She was started on Librium for concern for alcohol withdrawal. On further discussion, she reports that she only started drinking 3 days ago. Her nausea and vomiting is much improved, she is very calm and discussing with me today how she wants to go home to take care of her cat. I offered her resources for counseling and for alcohol cessation, and she declined the saying that they do not work. She reports that she does not want to live sober, and only turn to alcohol as it is cheaper than marijuana. I encouraged her to at the very least cut back on her drinking and describes the risks of continued alcohol abuse such as esophageal varices, tears from vomiting, liver disease. She has been instructed to follow-up with her PCP. ALLERGIES Allergies Allergy/AdvReac Type Severity Reaction Status Date / Time lamotrigine Allergy Anaphylaxis Verified 04/14/25 15:20 MEDICATIONS Ambulatory Orders Medication Instructions Recorded Confirmed levomilnacipran 120 mg capsule,24 120 mg PO QDAY #30 c aps 10/15/24 04/15/25 hr,extended release (Fetzima) sumatriptan succinate 100 mg tablet See Rx Instruction s PO .COMPLEX 11/12/24 04/15/25 ferrous fumarate 324 mg (106 mg 324 mg PO QDAY #30 tab s 01/07/25 04/15/25 iron) tablet suvorexant 10 mg tablet 10 mg PO HS #30 tabs 5 bupropion HCl 300 mg 24 hr tablet, 300 mg PO QAM #30 t abs 03/17/25 04/15/25 extended release lurasidone 60 mg tablet 60 mg PO DAILY #30 tabs 02/2304/15/25 semaglutide (weight loss) 0.25 1 mg subcut QWEEK 03/1704/15/25 mg/0.5 mL subcutaneous pen injector famotidine 20 mg tablet 20 mg PO DAILY #30 tabs 03/25 01/18 lorazepam 1 mg tablet (Ativan) 1 mg PO TID PRN alcohol withdrawal 04/14/25 #14 tabs ondansetron 4 mg disintegrating 4 mg PO QID PRN nausea and 04/14/25 tablet vomiting #14 tabs prochlorperazine 25 mg rectal 25 mg MD TID PRN nausea and 04/14/25 suppository (Compazine) vomiting #6 ea prochlorperazine maleate 10 mg 10 mg PO TID PRN nausea and 04/14/25 tablet (Compazine) vomiting #20 tabs norethindrone-eth. estradiol-iron 1 tab PO DAILY 04/1504/15/25 1-20 (5)/1-30(7)/1mg-35mcg(9) tablet (Tri-Legest Fe) omeprazole 40 mg capsule,delayed 40 mg PO BID #60 caps 04/15/25 release ondansetron 8 mg disintegrating 8 mg PO .q6-8 PRN naus ea and 04/15/25 tablet vomiting 30 days #30 tabs PHYSICAL EXAM AT DISCHARGE Vital Signs: Vital Signs x48h Temp Pulse Resp BP Pulse Ox 04/15/25 16:10 36.6 C 114 H 18 118/83 98 04/15/25 12:00 37.0 C 139 H 16 103/64 97 04/15/25 08:16 36.7 C 104 H 18 109/79 99 General Appearance: positive No acute distress and Alert Eyes Bilateral: positive Normal inspection ENT: positive ENT inspection nml Neck: positive Nml inspection Respiratory: positive Chest non-tender and No respiratory distress Cardiovascular: negative Regular rate & rhythm (Tachycardic with activity) Peripheral Pulses: positive 2+ Abdomen: positive Non-tender Skin: positive Color nml Extremities: positive Non-tender Neurologic/Psychiatric: positive Oriented x3 LABS 04/15/25 05:04 04/15/25 05:04 FOLLOW UP Follow Up: With PCP TIME SPENT Time Spent in Discharge (Minutes): 37 Discharge Plan Discharge Patient Disposition: Home, Self Care Condition: Stable Prescriptions: New famotidine 20 mg tablet 20 mg PO DAILY Qty: 30 0RF ondansetron 4 mg tablet,disintegrating 4 mg PO QID PRN (Reason: nausea and vomiting) Qty: 14 0RF prochlorperazine [Compazine] 25 mg suppository 25 mg MD TID PRN (Reason: nausea and vomiting) Qty: 6 0RF lorazepam [Ativan] 1 mg tablet 1 mg PO TID PRN (Reason: alcohol withdrawal) Qty: 14 0RF prochlorperazine maleate [Compazine] 10 mg tablet 10 mg PO TID PRN (Reason: nausea and vomiting) Qty: 20 0RF omeprazole 40 mg capsule,delayed release(DR/EC) 40 mg PO BID Qty: 60 2RF Continued suvorexant 10 mg tablet 10 mg PO HS Qty: 30 2RF Rx Instructions: Take 1 tablet within 30 mins of bedtime. Only take when time permits 7+ hours sleep (do not take in the middle of night). Avoid taking with food for faster time to onset. norethindrone-e.estradiol-iron [Tri-Legest Fe] 1-20(5)/1-30(7) /1mg-35mcg (9) tablet 1 tab PO DAILY Patient Comments: take 1 tablet by mouth once daily sumatriptan succinate 100 mg tablet See Rx Instructions PO .COMPLEX Rx Instructions: take 1 tab at onset of headache; if no relief, may repeat 1 tab after at least 2 hrs; max = 2 tabs/24 hrs PO ferrous fumarate 324 mg (106 mg iron) tablet 324 mg PO QDAY Qty: 30 0RF semaglutide (weight loss) 0.25 mg/0.5 mL pen injector 1 mg subcut QWEEK Rx Instructions: increases on monthly basis bupropion HCl 300 mg tablet extended release 24 hr 300 mg PO QAM Qty: 30 2RF lurasidone 60 mg tablet 60 mg PO DAILY Qty: 30 2RF Fetzima 120 mg capsule,extended release 24 hr 120 mg PO QDAY Qty: 30 11RF Changed ondansetron 8 mg tablet,disintegrating 8 mg PO .q6-8 PRN (Reason: nausea and vomiting) 30 Days Qty: 30 0RF Activity Restrictions: No Restrictions Diet: Soft Health Concerns: You came into the hospital with nausea and vomiting. Imaging showed gastritis, which is likely because of your heavy drinking over the past few days. You were held in the hospital and started on IV fluids and medications to help with your diarrhea gastritis. You are feeling better today, and opted to go home. I would like for you to continue taking omeprazole and Pepcid twice daily. I wrote you a prescription for these but these are also available [id number]. I gave you Compazine and Zofran to take as well for nausea. Please keep a bland diet for the next few days while your stomach recovers. No restrictions on activity, please do not drive for the next day. Please follow- up with your PCP. I would highly recommend reaching out for resources regarding counseling or alcohol cessation Print Language: Welsh Patient Instructions: ED Gastritis, ED Nausea Vomiting Stand Alone Forms: PCP List Follow-up Care: Gloria Brown ARNP [Primary Care Provider] -
== END 2025-04-15 17:20 | disposition home or self-care (01) | DRG 392 ==
LOC: ED 15:11 → MS2 15:11
PROVIDERS: ADMIT Nurse Practitioner Acute Care; ATTEND Nurse Practitioner Acute Care
DX: K20.80 Other esophagitis without bleeding; F10.229 Alcohol dependence with intoxication, unspecified; K29.20 Alcoholic gastritis without bleeding; Y90.7 Blood alcohol level of 200-239 mg/100 ml